=== PATIENT | female | born 1950 | race Caucasian/White ===

== ENCOUNTER 2017-11-28 05:19 | Inpatient (IN) | payer MEDICARE, SELFPAY ==
[2017-11-15 10:18] VITALS: BP 141/84; PULSE 64; RESP 17; TEMP 36.4; O2SAT 98; BMI 34.1
--- NOTE | 2017-11-15 10:39 | SDCEKG_ITS ---
Test Reason : Blood Pressure : / mmHG Vent. Rate : 063 BPM Atrial Rate : 063 BPM P-R Int : 170 ms QRS Dur : 080 ms QT Int : 430 ms P-R-T Axes : 061 036 060 degrees QTc Int : 440 ms Normal sinus rhythm Possible Left atrial enlargement Borderline ECG Confirmed by CASSANDRA SPIVEY ([id number]), editor house organ CAPRICE CAVANAUGH ([id number] on 11/17/2017 2:10:36 PM Referred By: Mario Massey Confirmed By:CASSANDRA SPIVEY
[2017-11-15 11:05] LABS: Hematocrit 45.1 % (37-47); Hemoglobin 14.5 g/dl (12.0-15.0); Mean Corp Hgb Conc 32.2 g/gl (32-36); Mean Corpuscular Volume 93.2 fL (81-99); Mean Platelet Vol. 10.3 fl (6.2-12.0); Platelet Count 238 K/mm3 (150-450); RBC Distribution Width CV 13.4 % (11.6-14.6); RBC Distribution Width SD 45.2 fl (35.1-43.9); Red Blood Count 4.84 M/mm3 (4.2-5.4); White Blood Count 7.5 K/mm3 (4.4-11.0)
[2017-11-15 11:06] LABS: Scan Indicated on CBC? Y/N NO
[2017-11-15 11:31] LABS: Anion Gap 11 (5-15); BUN 16 mg/dL (7-18); BUN/Creat Ratio 16.2 RATIO (10-20); Calcium,Total 8.9 mg/dL (8.5-10.1); Chloride 105 mmol/L (98-107); Creatinine, Serum 0.98 mg/dL (0.55-1.02); EST Glomerular Filtration Rate 60 mL/min (>60); Est Glom Filt Rate - Afr Amer 72 mL/min (>60); Estimated Creatinine Clearance 50.13 ml/min; Glucose 108 mg/dL (74-106); Potassium 4.4 mmol/L (3.5-5.1); Sodium Level 140 mmol/L (136-145); Thyroid Stim Hormone (TSH) 0.21 uIU/mL (0.358-3.74)
[2017-11-15 11:34] LABS: Hemoglobin A1c 5.9 % (4.2-6.3)
--- NOTE | 2017-11-24 15:55 | CASEMGMT ---
RITU GARCÍA called and spoke with patient regarding discharge needs after upcoming surgery. Patient states that she has a walker, cane, raised toilet seat, hip kit, and denies need for further DME. Patient states she lives in a 1 story home with a few steps to enter home. Patient lives with her . Patient states that she is setup with [facility] in [place] for outpatient therapy and that her spouse will be providing transportation. RITU GARCÍA will follow up with patient after surgery and will assist with discharge needs.
[2017-11-28] VITALS (11 sets, daily range): BP systolic 109–180; BP diastolic 62–84; PULSE 56–82; RESP 16–18; TEMP 35.7–37.1; O2SAT 96–100; BMI 34.1
[2017-11-28] MEDS: Celecoxib 200 MG Capsule 400 MG PO (05:52)
[2017-11-28] MEDS: oxyCODONE HCl Cr 10 MG Tablet PO (05:52)
[2017-11-28] MEDS: Acetaminophen 500 MG Tablet 1000 MG PO ×3 (05:53→21:43)
[2017-11-28] MEDS: Lactated Ringers 1,000 ML 999 ML IV (06:36)
[2017-11-28] MEDS: Cefazolin 2 GM in 0.9% Normal Saline 100 ML IV (07:20)
--- NOTE | 2017-11-28 08:35 | PCM.OPRPT ---
Report of Operation Date of Procedure: 11/28/17 Pre-Operative Diagnosis: Severe end-stage osteoarthritis right hip. Morbid obesity Post-Operative Diagnosis: Same Surgery/Procedure Performed:: Total hip arthroplasty right Description of Surgical Findings:: Eburnation of bone, periarticular osteophytes consistent with end-stage osteoarthritis aviation maintenance instructor: Chris Calderon Type of Anesthesia:: Spinal Anesthesiologist: Eddie Agee Special Medications: txa Specimen's removed: Bone and soft tissue Estimated Blood Loss (mL): 150 Fluids Replaced: See anesthesia report Description of Procedure: Implants: Akua Accolade 2 size 4 127? stem, 54 mm titanium cup with MDM +0 neck Surgical indications: Patient has severe end-stage osteoarthritic changes in the right hip. They have failed conservative measures including activity modification, anti-inflammatories, use of assistive devices. This to the point where the pain affects their ability to enjoy life and complete activities of daily living without discomfort. Patient has elected to undergo the above procedure Procedure description: The patient was greeted in the preoperative area the right hip was marked with surgical marker preoperative antibiotics administered. The patient was then taken to or suite in stable condition. Preoperative tranexamic acid was also utilized. Once the patient was placed in the supine position on the operating room table and once adequate anesthesia was obtained they were then placed in the lateral decubitus position with the surgical hip facing the field. All bony prominences were well-padded. A commercial hip position was utilized. The appropriate extremity was then prepped and draped in usual sterile fashion. Ioban was placed on the skin. Surgical timeout was performed and surgery was commenced. Standard anterolateral approach to the hip was then performed incision was planned and carried out with a #10 blade. Dissection was then carried length of the incision to the IT band which was split proximally and distally. A Charnley retractor was then placed for soft tissue retraction exposing the gluteus medius. The hip was then approached through a transgluteal approach and dislocated through an anterior capsulectomy. Severe eburnation of bone was noted periarticular osteophytes were identified consistent with severe end-stage osteoarthritis. A femoral osteotomy was then created approximately 1 fingerbreadth above the lesser trochanter. This was measured and placed on the back table. Once this was complete acetabular retractors were placed anteriorly and posteriorly and a 4 mm Steinmann pin was placed anterior superior aspect of the acetabulum for soft tissue retention. Labrum was then removed from the acetabulum exposing the entire cup of the acetabulum. Sequential reaming was then commenced and the acetabulum was medialized and sequentially widened in order to accommodate appropriate size cup. The acetabular cup was then impacted into position to the appropriate depth referencing approximately 30? inversion 45? of inclination. Excellent purchase was obtained. No screws were placed in the cup. MDM metal liner was then placed in the locking mechanism of the acetabulum, locking mechanism was engaged and confirmed to be locked. Attention was then turned to the femoral preparation. The hip was placed in the 90/90 position and a lateralizing box osteotome was utilized. Femoral starting awl was used followed by sequential broaching to the appropriate size. Excellent purchase was obtained with the stem no stem subsidence and excellent rotational stability was confirmed. A calcar reamer was then used in the trial head neck was placed on the broach. The hip was then located and taken through full range of motion flexion internal and external rotation as well as extension. Excellent stability was noted no impingement was identified of the components and leg lengths appear to be appropriate. The hip was at this point dislocated and the trial femoral components were removed. The final femoral stem was then implanted and impacted to the appropriate depth. Again excellent purchase was obtained no stem subsidence or rotational instability was noted. The hip was once again trialed and confirmation of leg length and stability was performed. Soft tissue tension also appeared to be appropriate. At this point the hip was redislocated and the trunnion was cleaned and dried meticulously in the appropriate size femoral head was placed on the clean dry trunnion using a 12/14 Bowden taper. The hip was once again relocated and again taken through full range of motion. I did inject a cocktail of postoperative pain medication in the deep and superficial tissues. A quick Betadine bath was performed followed by copious irrigation. Anatomic closure of the gluteus medius and minimus was performed with #1 Vicryl [id number] type fashion followed by closure of the IT band with #1 Vicryl 0 Vicryl was utilized in subcutaneous tissue and surgical amy were placed in the skin. A well-padded nonadherent dressing was applied. Patient was taken to PACU in stable condition. No complications were identified. Will follow standard postop protocol for total hip arthroplasty. Patient must use assistive device for ambulation for approximately 6 weeks of the gluteal musculature heals. Patient size 5 foot 5-1/2 inches and 208 pounds created a more difficult procedure as the dissection was carried through approximately 4 inches of subcutaneous fat prior to identification of the lateral aspect of the hip. Additional time as well as the expertise of my technical staff assistant was required in order to complete a stable well fixed hip replacement Physician technical staff assistant was integral in all portions of this procedure. They assisted with positioning the patient, draping the extremity, holding retractors, closing the wound, and applying the dressing. This was all done under my direct supervision. The physician technical staff assistant was essential for a successful, efficient surgery. - Admit VTE Documentation VTE Present on Admission: Yes VTE Mechan Device Prophylaxis: SCD's, Thigh High ESTELLE Hose VTE Pharm Prophylaxis ordered?: Yes
--- NOTE | 2017-11-28 08:39 | OP.PCM_ITS ---
Report of Operation Date of Procedure: 11/28/17 Pre-Operative Diagnosis: Severe end-stage osteoarthritis right hip. Morbid obesity Post-Operative Diagnosis: Same Surgery/Procedure Performed:: Total hip arthroplasty right Description of Surgical Findings:: Eburnation of bone, periarticular osteophytes consistent with end-stage osteoarthritis batch maker: Chris Calderon Type of Anesthesia:: Spinal Anesthesiologist: Eddie Agee Special Medications: txa Specimen's removed: Bone and soft tissue Estimated Blood Loss (mL): 150 Fluids Replaced: See anesthesia report Description of Procedure: Implants: Akua Accolade 2 size 4 127? stem, 54 mm titanium cup with MDM +0 neck Surgical indications: Patient has severe end-stage osteoarthritic changes in the right hip. They have failed conservative measures including activity modification, anti-inflammatories, use of assistive devices. This to the point where the pain affects their ability to enjoy life and complete activities of daily living without discomfort. Patient has elected to undergo the above procedure Procedure description: The patient was greeted in the preoperative area the right hip was marked with surgical marker preoperative antibiotics administered. The patient was then taken to or suite in stable condition. Preoperative tranexamic acid was also utilized. Once the patient was placed in the supine position on the operating room table and once adequate anesthesia was obtained they were then placed in the lateral decubitus position with the surgical hip facing the field. All bony prominences were well-padded. A commercial hip position was utilized. The appropriate extremity was then prepped and draped in usual sterile fashion. Ioban was placed on the skin. Surgical timeout was performed and surgery was commenced. Standard anterolateral approach to the hip was then performed incision was planned and carried out with a #10 blade. Dissection was then carried length of the incision to the IT band which was split proximally and distally. A Charnley retractor was then placed for soft tissue retraction exposing the gluteus medius. The hip was then approached through a transgluteal approach and dislocated through an anterior capsulectomy. Severe eburnation of bone was noted periarticular osteophytes were identified consistent with severe end- stage osteoarthritis. A femoral osteotomy was then created approximately 1 fingerbreadth above the lesser trochanter. This was measured and placed on the back table. Once this was complete acetabular retractors were placed anteriorly and posteriorly and a 4 mm Steinmann pin was placed anterior superior aspect of the acetabulum for soft tissue retention. Labrum was then removed from the acetabulum exposing the entire cup of the acetabulum. Sequential reaming was then commenced and the acetabulum was medialized and sequentially widened in order to accommodate appropriate size cup. The acetabular cup was then impacted into position to the appropriate depth referencing approximately 30? inversion 45? of inclination. Excellent purchase was obtained. No screws were placed in the cup. MDM metal liner was then placed in the locking mechanism of the acetabulum, locking mechanism was engaged and confirmed to be locked. Attention was then turned to the femoral preparation. The hip was placed in the 90/90 position and a lateralizing box osteotome was utilized. Femoral starting awl was used followed by sequential broaching to the appropriate size. Excellent purchase was obtained with the stem no stem subsidence and excellent rotational stability was confirmed. A calcar reamer was then used in the trial head neck was placed on the broach. The hip was then located and taken through full range of motion flexion internal and external rotation as well as extension. Excellent stability was noted no impingement was identified of the components and leg lengths appear to be appropriate. The hip was at this point dislocated and the trial femoral components were removed. The final femoral stem was then implanted and impacted to the appropriate depth. Again excellent purchase was obtained no stem subsidence or rotational instability was noted. The hip was once again trialed and confirmation of leg length and stability was performed. Soft tissue tension also appeared to be appropriate. At this point the hip was redislocated and the trunnion was cleaned and dried meticulously in the appropriate size femoral head was placed on the clean dry trunnion using a 12/14 Bowden taper. The hip was once again relocated and again taken through full range of motion. I did inject a cocktail of postoperative pain medication in the deep and superficial tissues. A quick Betadine bath was performed followed by copious irrigation. Anatomic closure of the gluteus medius and minimus was performed with #1 Vicryl [id number] type fashion followed by closure of the IT band with #1 Vicryl 0 Vicryl was utilized in subcutaneous tissue and surgical amy were placed in the skin. A well- padded nonadherent dressing was applied. Patient was taken to PACU in stable condition. No complications were identified. Will follow standard postop protocol for total hip arthroplasty. Patient must use assistive device for ambulation for approximately 6 weeks of the gluteal musculature heals. Patient size 5 foot 5-1/2 inches and 208 pounds created a more difficult procedure as the dissection was carried through approximately 4 inches of subcutaneous fat prior to identification of the lateral aspect of the hip. Additional time as well as the expertise of my housing assistant was required in order to complete a stable well fixed hip replacement Physician housing assistant was integral in all portions of this procedure. They assisted with positioning the patient, draping the extremity, holding retractors , closing the wound, and applying the dressing. This was all done under my direct supervision. The physician housing assistant was essential for a successful, efficient surgery. - Admit VTE Documentation VTE Present on Admission: Yes VTE Mechan Device Prophylaxis: SCD's, Thigh High ESTELLE Hose VTE Pharm Prophylaxis ordered?: Yes
--- NOTE | 2017-11-28 09:30 | RAD_ITS ---
STUDY: X-RAY - PELVIS AND RIGHT HIP REASON FOR EXAM: Female, 66 years old. Postop from hip replacement surgery TECHNIQUE: Radiological exam, hip, unilateral, with pelvis when performed; 2 or 3 views. 2 views obtained COMPARISON: None. FINDINGS: Patient is status post right hip replacement surgery. Components demonstrate anatomic alignment. No plain film evidence of postoperative complication. Normal postoperative soft tissue swelling and subcutaneous emphysema. Moderate to severe left hip arthrosis Calcification in the pelvis likely represents an involuted fibroid RAD/Hip Min 2 Views (Portable) IMPRESSION: Replaced right hip joint demonstrates anatomic alignment. No plain film evidence of postoperative complication Electronically Signed: Jett Smart MD at 10:21 EDT , Service support ,
[2017-11-28] MEDS: proMETHazine 25 MG/ML Syringe 12.5 MG IM (12:50)
[2017-11-28] MEDS: 0.9% NaCl Peripheral Flush Adult/Peds IV (12:51)
[2017-11-28] MEDS: Lactated Ringers 1,000 ML 125 ML IV ×2 (14:32→23:14)
[2017-11-28] MEDS: Cefazolin 1 GM/50 ML BAG IV ×2 (14:32→23:14)
[2017-11-28] MEDS: oxyCODONE 5 MG Tablet PO (15:23)
[2017-11-28] MEDS: Aspirin 325 MG Tablet PO (17:37)
[2017-11-28] MEDS: morphine SR 15 MG Tablet PO (21:42)
[2017-11-28] MEDS: Senna/Docusate Sodium 1 Tablet 2 TABLET PO (21:43)
[2017-11-29] MEDS: oxyCODONE 5 MG Tablet PO ×3 (00:30→11:39)
[2017-11-29 01:58] VITALS: BP 112/54; PULSE 85; RESP 15; TEMP 37.3; O2SAT 96
[2017-11-29] MEDS: Acetaminophen 500 MG Tablet 1000 MG PO ×3 (05:26→21:03)
[2017-11-29 06:15] LABS: Hematocrit 33.8 % (37-47); Hemoglobin 10.8 g/dl (12.0-15.0); Mean Corpuscular Hgb 30.6 pg (27.0-32.0); Mean Corpuscular Volume 95.8 fL (81-99); Mean Platelet Vol. 10.8 fl (6.2-12.0); Platelet Count 190 K/mm3 (150-450); RBC Distribution Width CV 13.3 % (11.6-14.6); RBC Distribution Width SD 44.1 fl (35.1-43.9); Red Blood Count 3.53 M/mm3 (4.2-5.4); White Blood Count 7.1 K/mm3 (4.4-11.0)
[2017-11-29 06:25] LABS: Scan Indicated on CBC? Y/N NO
[2017-11-29 06:32] LABS: Anion Gap 7 (5-15); BUN 13 mg/dL (7-18); BUN/Creat Ratio 13.9 RATIO (10-20); Calcium,Total 8.3 mg/dL (8.5-10.1); Chloride 107 mmol/L (98-107); Creatinine, Serum 0.94 mg/dL (0.55-1.02); EST Glomerular Filtration Rate 63 mL/min (>60); Est Glom Filt Rate - Afr Amer 77 mL/min (>60); Estimated Creatinine Clearance 52.26 ml/min; Glucose 106 mg/dL (74-106); Potassium 4.2 mmol/L (3.5-5.1); Sodium Level 141 mmol/L (136-145)
--- NOTE | 2017-11-29 07:28 | PN.ORTHO_ITS ---
Subjective: Patient sitting at bedside, eating breakfast. Patient's pain is very well- managed. Denies chest pain, shortness breath, calf pain, nausea vomiting. No other complaints Objective: Dressings clean dry intact. Vital signs labs within normal limits. Patient is afebrile neurovascular is intact. Negative signs and symptoms of DVT. - Physical Exam General: Alert, Oriented x3, Cooperative HEENT: PERRLA Oral: Moist Mucosa Neurological: Cranial nerves II-XII grossly intact Psych/Mental Status: Normal Affect, Alert and oriented to time, place, person, mood and affect Vital Signs Temp Pulse Resp BP Pulse Ox 99.1 F 85 15 112/54 L 96 11/29/17 01:58 11/29/17 01:58 11/29/17 01:58 11/29/17 01:58 11/29/17 01:58 Oxygen Delivery Method Room Air Weight: 94.4 kg Body Mass Index (BMI) 34.1 Intake and Output for Last 24 Hours 11/27/17 11/28/17 11/29/17 23:59 23:59 23:59 Intake Total 4006 / 4006 1273 / 1273 Balance 4006 / 4006 1273 / 1273 Laboratory Tests Past 24 Hrs 11/29/17 11/29/17 05:35 05:35 WBC 7.1 RBC 3.53 L Hgb 10.8 L Hct 33.8 L MCV 95.8 MCH 30.6 MCHC 32.0 RDW 13.3 RDW Differential 44.1 H Plt Count 190 MPV 10.8 Sodium 141 Potassium 4.2 Chloride 107 Carbon Dioxide 27.0 Anion Gap 7 BUN 13 Creatinine 0.94 Estim Creat Clear Calc 52.26 Est GFR (MDRD) Af Amer 77 Est GFR (MDRD) Non-Af 63 BUN/Creatinine Ratio 13.9 Glucose 106 Calcium 8.3 L Medical Necessity - Tobacco Use Smoking Status: Never smoker Assessment/Plan Status post right total hip Plan 1. Continue all pain medications as prescribed 2. Begin physical therapy today weightbearing as tolerated with walker 3. Aspirin 325 mg 1 p.o. every 12 hours ?30 days for postop DVT prophylaxis 4. Encourage incentive spirometry 5. Possible discharge home tomorrow
[2017-11-29 09:27] VITALS: BP 109/53; PULSE 81; RESP 16; TEMP 36.7; O2SAT 94
[2017-11-29] MEDS: Aspirin 325 MG Tablet PO ×2 (09:37→18:14)
[2017-11-29] MEDS: Senna/Docusate Sodium 1 Tablet 2 TABLET PO ×2 (09:37→21:03)
[2017-11-29] MEDS: morphine SR 15 MG Tablet PO ×2 (09:37→21:03)
[2017-11-29] MEDS: Famotidine 20 MG Tablet PO (09:37)
[2017-11-29 14:22] VITALS: BP 102/63; PULSE 77; RESP 16; TEMP 36.9; O2SAT 97
--- NOTE | 2017-11-29 14:33 | CASEMGMT ---
RITU GARCÍA Face to Face with patient for initial transition planning/care coordination assessment. RITU GARCÍA introduced self and role at [facility]. Patient lying in bed, alert and oriented. Patient willing to participate in assessment and is able to answer all questions appropriately. Care providers, pharmacy, and demographics verified. Patient wishes to discharge home with outpatient therapy at [facility] in [place] with providing transportation. Patient states she has no further needs or concerns at this time. CM to follow for discharge planning needs that may arise. Disposition Plan: Patient to discharge home with outpatient therapy, family support, and follow-up plans in place.
[2017-11-29] MEDS: Ketorolac 15 MG/ML Vial IV (18:16)
[2017-11-29] MEDS: 0.9% NaCl Peripheral Flush Adult/Peds IV (18:16)
[2017-11-29 20:48] VITALS: BP 119/71; PULSE 90; RESP 18; TEMP 36.6; O2SAT 99
[2017-11-30] MEDS: oxyCODONE 5 MG Tablet PO ×2 (02:34→07:47)
[2017-11-30 02:35] VITALS: BP 128/67; PULSE 99; RESP 18; TEMP 37.3; O2SAT 99
[2017-11-30] MEDS: Acetaminophen 500 MG Tablet 1000 MG PO (05:34)
[2017-11-30 05:58] LABS: Hematocrit 31.7 % (37-47); Hemoglobin 10.3 g/dl (12.0-15.0); Mean Corp Hgb Conc 32.5 g/gl (32-36); Mean Corpuscular Volume 95.5 fL (81-99); Platelet Count 161 K/mm3 (150-450); RBC Distribution Width CV 13.4 % (11.6-14.6); RBC Distribution Width SD 44.4 fl (35.1-43.9); Red Blood Count 3.32 M/mm3 (4.2-5.4); White Blood Count 8.4 K/mm3 (4.4-11.0)
[2017-11-30 06:09] LABS: Scan Indicated on CBC? Y/N NO
[2017-11-30] MEDS: Aspirin 325 MG Tablet PO (07:41)
[2017-11-30 07:42] VITALS: BP 122/67; PULSE 90; RESP 18; TEMP 36.7; O2SAT 96
[2017-11-30] MEDS: Famotidine 20 MG Tablet PO (10:34)
[2017-11-30] MEDS: Senna/Docusate Sodium 1 Tablet 2 TABLET PO (10:34)
[2017-11-30] MEDS: morphine SR 15 MG Tablet PO (10:39)
--- NOTE | 2017-11-30 11:51 | PCM.PN.ORT ---
Subjective: Patient sitting up in bed sleeping. Patient easy to awake. at her bedside. Patient denies chest pain, shortness breath, calf pain, nausea vomiting. Has no other complaints. Ready for discharge home. Objective: Dressings clean dry intact. Negative signs and symptoms of DVT. Vital signs labs within normal limits. Patient is afebrile neurovascular intact, no respiratory distress. - Physical Exam General: Alert, Oriented x3, Cooperative HEENT: PERRLA Oral: Moist Mucosa Neurological: Cranial nerves II-XII grossly intact Psych/Mental Status: Normal Affect, Alert and oriented to time, place, person, mood and affect Vital Signs Temp Pulse Resp BP Pulse Ox 98.0 F 90 18 122/67 H 96 11/30/17 07:42 11/30/17 07:42 11/30/17 07:42 11/30/17 07:42 11/30/17 07:42 Oxygen Delivery Method Room Air Weight: 94.4 kg Body Mass Index (BMI) 34.1 Intake and Output for Last 24 Hours 11/28/17 11/29/17 11/30/17 23:59 23:59 23:59 Intake Total 4006 / 4006 1573 / 1573 250 / 250 Balance 4006 / 4006 1573 / 1573 250 / 250 Laboratory Tests Past 24 Hrs 11/30/17 05:30 WBC 8.4 RBC 3.32 L Hgb 10.3 L Hct 31.7 L MCV 95.5 MCH 31.0 MCHC 32.5 RDW 13.4 RDW Differential 44.4 H Plt Count 161 MPV 11.0 Medical Necessity - Tobacco Use Smoking Status: Never smoker Assessment/Plan Status post right total hip Plan 1. Continue all pain medications as prescribed 2. Continue physical therapy outpatient, as scheduled. Weightbearing as tolerated with walker 3. Aspirin 325 mg 1 p.o. every 12 hours ?30 days for postop DVT prophylaxis 4. Follow-up as scheduled. See pink sheet 5. Discharge home
--- NOTE | 2017-11-30 11:57 | PCM.DC.THR ---
Discharge Diet: No Restrictions Discharge Activity: May Not Drive, May Shower, Use Walker May shower in (days): 3 - only if incision is dry and without drainage. Do NOT soak/submerge in tub/pool/crowley/stream/hot tub. May resume sexual activity in: No Restrictions Ice area for (Minutes): 20 - every hour while awake Weight Bearing Status: Weight bearing as tolerated Lifting Restrictions: 20 pounds Elevate: Operative Extremity Call your doctor if your incision/area has: Continuous Slow Oozing, Sudden Increased Bleeding, Increased Pain/ Swelling, Increased Redness, Foul Smelling Discharge Call your doctor if you observe: Fever of 101 or Higher, Inability to urinate, Inability to have a bowel movement, Shortness of breath, Fainting spells, Chest pain, Increased palpitations (irregular heartbeat), Calf discomfort, Uncontrolled pain Change Dressing in (Days):: 1 - Change daily and as needed. Cleanse incision/area with: Soap & Water Allergies/Adverse Reactions: Allergies No Known Allergies Allergy (Verified 11/15/17 10:07) Medications to take at Discharge Atorvastatin Calcium [Lipitor] 20 mg PO QHS 11/15/17 Cholecalciferol (Vitamin D3) [Vitamin D3] 2,000 unit PO DAILY 11/15/17 Levothyroxine Sodium [Synthroid] 88 mcg PO QHS 11/15/17 Losartan Potassium [Cozaar] 50 mg PO DAILY 11/15/17 Meloxicam [Mobic] 15 mg PO PRN PRN 11/15/17 Metoprolol Succinate [Toprol Xl] 50 mg PO DAILY 11/15/17 Niacin [Niacin ER] 1,000 mg PO QHS 11/15/17 Omeprazole [Prilosec] 20 mg PO PRN PRN 11/15/17 Acetaminophen [Tylenol] 1,000 mg PO Q8 #90 tab 11/30/17 Aspirin 325 mg PO BIDCM #60 tab 11/30/17 Oxycodone [Oxyir] 5 - 10 mg PO Q6H PRN PRN 7 Days #45 tab 11/30/17 The following prescriptions were given: Oxycodone [Oxyir] 5 - 10 mg PO Q6H PRN PRN 7 Days #45 tab PRN Reason: Mod-Severe Pain (4-05/10) Acetaminophen [Tylenol] 1,000 mg PO Q8 #90 tab Aspirin 325 mg PO BIDCM #60 tab Primary Care Physician: Vijay Jc MD [Primary Care Provider] - Please Follow Up With: Mario Massey, DO When: see pink sheet
[2017-11-30 13:29] VITALS: BP 110/59; PULSE 98; RESP 16; TEMP 36.6; O2SAT 95
== END 2017-11-30 14:00 | disposition home or self-care (01) | DRG 470 ==
LOC: MS3 05:20
PROVIDERS: Anesthesiology; Admitting Provider Orthopaedic Surgery; Visit Provider Orthopaedic Surgery
PROC: 0SR90JZ Replacement of Right Hip Joint with Synthetic Substitute, Open Approach (ICD-10-PCS; CPT 27130; principal; 2017-11-28 06:50)
DX: M16.11 Unilateral primary osteoarthritis, right hip (principal); E66.01 Morbid (severe) obesity due to excess calories; I10 Essential (primary) hypertension; E78.00 Pure hypercholesterolemia, unspecified; M51.36 Other intervertebral disc degeneration, lumbar region; K21.9 Gastro-esophageal reflux disease without esophagitis; E06.9 Thyroiditis, unspecified; Z68.34 Body mass index [BMI] 34.0-34.9, adult; Z79.82 Long term (current) use of aspirin; Z79.899 Other long term (current) drug therapy
CPT/HCPCS: 36415; 73502; 80048; 83036; 84443; 85027; 87081; 93005; 97110; 97116; 97162; 97165; 97530; 97535; J7120; A4216

== ENCOUNTER 2020-10-08 12:17 | Observation (INO) | payer MEDICARE, SELFPAY ==
--- NOTE | 2020-09-24 15:34 | PCM.HP.BLA ---
History and Physical History and Physical [facility] Patient Name: Mine Perdomo : 1950 From: KARMA MABRY PA-C DATE OF SURGERY: 10/08/2020 SCHEDULED PROCEDURE: left total hip arthroplasty HISTORY OF PRESENT ILLNESS: Preoperative history and physical exam was performed on September 24, 2020. This is a 69-year-old female who has had ongoing pain in her left hip for several years. Patient's pain can reach 10/10 with activities. On average her pain as 4/10. Her pain has been intermittent, aching, sharp, sore. Pain is increased with going up and down stairs and walking short distances. Patient has difficulty with activities of daily living including bathing/showering, getting dressed, housework, and leisure activities such as walking. She has no longer able to use her treadmill. She has tripped/stumbled due to her hip pain. She feels unsafe for any activities that require standing for long period of time. Patient has attempted [id number] Tylenol and meloxicam with some relief. She does have previous history of a right total hip arthroplasty [place] [address] Mario Massey. Patient denies previous surgery on the left hip. She has been using cane for the past 2 months occasionally. She denies any current chest pain, shortness of breath, fevers chills, recent infections. We are obtaining surgical clearance from her primary care physician Dr. Jc. Patient also reports undergoing an EKG, stress test, and echocardiogram in July 2020. After failing conservative measures and discussing treatment options with Dr. Hubert Brooks, the patient does wish to proceed with a left total hip arthroplasty. REVIEW OF SYSTEMS: ROS: Const: Reports weight change, but denies change in appetite and fever. CV: Denies chest pain, heart murmur and irregular heartbeat. Resp: Denies cough, pneumonia, SOB, tuberculosis and wheezing. GI: Reports heartburn, but denies constipation, diarrhea, difficulty swallowing, nausea, bloody stools and vomiting. : Urinary: reports incontinence. Musculo: Reports limp, trouble walking and weakness, but denies leg swelling. Skin: Denies Raynaud's, history of shingles and tattoo. Neuro: Denies ambulatory dysfunction, dizziness, numbness/tingling and tremor. Psych: Denies anxiety, insomnia and stress. Victor M/Lymph: Reports bleeding/bruising tendency, but denies anemia and past transfusion. Reviewed, no changes. PAST MEDICAL HISTORY: Advance Care Plan: Other Directive, POA Effective Date: 11/03/2017 Other Directive, LIVING WILL Effective Date: 11/03/2017 PMH: Medical Problems: Arthritis, High Blood Pressure, Hypercholesterolemia Accidents: None Surgical Hx: Partial Thyroidectomy - (2008) Hip Replacement RT - (11/28/2017) [email or web address] LT Small Finger Trigger Release - (2017) Anesthesia Complications: None Assistive Devices: None Reviewed and updated. SOCIAL HISTORY: SH: Marital: .Occupation: Retired.Work Status: Retired.Hand Dominance: Right-handed. Personal Habits: Cigarette Use: Never Smoked Cigarettes.Alcohol: Occasionally.Drug Use: Denies Use.Enjoy Exercising: Daily. Reviewed, no changes. VITALS: Ht: 65 Wt: 197lb Wt k.359 BMI: 32.8 BP: 113/60 Pulse: 56 Resp: 16 T: 97.0 T: 36.1C Pain Level: 5 ALLERGIES: No Known Drug Allergy MEDICATIONS: Losartan Potassium 50 mg 1po qday, Atorvastatin Calcium 20 mg 1po qday, Aspirin 325 mg 1 tab PO daily, Vitamin D 2000 Unit 1po qday, Metoprolol Succinate ER 100 mg 1 by mouth every day, Sertraline HCL 50 mg 1 by mouth every day, Synthroid 88 mcg 1 by mouth every day, Niaspan 1000 mg 1 PO q day PRE-OP EXAM: General appearance:NORMAL Other: Eyes: Conjunctivae and lids: NORMAL Pupils: ERR Ears, Nose, Mouth, and Throat: NORMAL Other: Inspection of lips, teeth and gums: NORMAL Other: Neck: Examination of neck: no masses noted. Respiratory: Assessment of respiratory effort: NORMAL Other: Auscultation of lungs: clear to auscultation no wheezes, rhonchi or rales. Cardiovascular: Auscultation of heart: regular rate and rhythm, no murmurs, gallops or rubs. Exam of carotid arteries: NORMAL Other: Gastrointestinal: Exam of abdomen: soft, nontender, nondistended bowel sounds present. PHYSICAL EXAMINATION: Patient does walk with an antalgic gait. Left hip is without any erythema or signs of infection. Patient has obligatory external rotation with hip flexion. Flexion 50, internal rotation neutral, external rotation 10. Resisted range of motion: 4/5 hip flexion. Patient also has a 10 flexion contracture of the left knee with valgus alignment. IMAGING STUDIES: Previous x-rays of the left hip reveal joint space narrowing, subchondral sclerosis, osteophyte formation consistent with severe stage IV central wear pattern left hip osteoarthritis. IMPRESSION: 1. Severe left hip osteoarthritis 2. Hypertension 3. Hypercholesterolemia 4. Partial thyroidectomy PLAN: Dr. Hubert Brooks did discuss and review with the patient all treatment options including surgical versus nonsurgical options. Patient does wish to proceed with the above-stated procedure. Potential risks, benefits, and complications of the procedure were discussed in detail including but not limited to , infection, nerve and blood vessel damage, persistent pain, numbness, tingling, paresthesias, blood clot, pulmonary embolism, and requirement for possible further surgery. The patient expressed full understanding and has no further questions for the doctor. Patient does agree to proceed with the above-stated procedure and has signed the surgery consent form. We discussed the current risks associated with COVID 19. This does include the risk of exposure while in the hospital. Patient was reassured local hospitals have low infection rates and are taking all necessary precautions to avoid exposure to patients. In addition, we discussed strategies that can be used to help limit exposure including those that limit the patient's time in the hospital. Also using strategies to limit the patient's need for continued inpatient services after being discharged from the hospital. Patient was notified that we will need to comply with any screening or testing the hospital wishes to perform or that surgery may be delayed for any positive results. This dictation was created using voice recognition software. Phonetic and/or grammatical errors may exist. ___ I have re-examined the patient. There are no clinical changes since date of exam. ___ See progress notes for changes. ___ Dictated on admission Date: Time: Signature:
[2020-10-08] VITALS (11 sets, daily range): BP systolic 105–144; BP diastolic 59–84; PULSE 58–88; RESP 16–18; TEMP 36.2–36.8; O2SAT 94–100; BMI 32.3
[2020-10-08] MEDS: Celecoxib 200 MG Capsule 400 MG PO (10:38)
[2020-10-08] MEDS: Gabapentin 600 MG Tablet PO (10:38)
[2020-10-08] MEDS: Acetaminophen 500 MG Tablet 1000 MG PO ×2 (10:39→21:57)
[2020-10-08] MEDS: Lactated Ringers 1,000 ML 999 ML IV ×2 (11:00→13:30)
[2020-10-08 11:30] LABS: Bedside Glucose 90 mg/dL (70-110)
[2020-10-08] MEDS: Lactated Ringers 1,000 ML 75 ML IV (11:34)
[2020-10-08 11:37] LABS: Magnesium 2.1 mg/dL (1.6-2.6); Thyroid Stim Hormone (TSH) 1.38 uIU/mL (0.358-3.74)
--- NOTE | 2020-10-08 12:15 | RAD_ITS ---
STUDY: X-RAY - PELVIS AND LEFT HIP REASON FOR EXAM: Female, 69 years old. Pain. TECHNIQUE: 4 intraoperative digital documentation images of hip replacement. COMPARISON: 11/28/2017 FINDINGS: Intraoperative digital documentation images show placement of left total hip arthroplasty with no complications. RAD/Hip 1 view with Pelvis IMPRESSION: Intraoperative digital documentation images. Electronically Signed: Chris Gallegos MD at 15:59 EST , Service support ,
[2020-10-08] MEDS: Cefazolin 2 GM in 0.9% Normal Saline 100 ML IV (12:31)
[2020-10-08] MEDS: dexAMETHasone 10 MG/ML Vial IV (12:34)
--- NOTE | 2020-10-08 13:32 | OP.PCM_ITS ---
Report of Operation Date of Procedure: 10/08/20 Pre-Operative Diagnosis: Left hip primary osteoarthritis Surgery/Procedure Performed:: Left hip primary osteoarthritis Description of Surgical Findings:: Left minimally invasive direct anterior total hip replacement gutter hanger: Romero Baxter Type of Anesthesia:: Spinal Anesthesiologist: Elieser Cid Special Medications: 2 g Ancef, 1 g TXA at incision, 1 g TXA closure, 10 mg Decadron, joint cocktail (5 mg Duramorph, 30 mL of 0.5% Ropivicaine, 1000 units of epinephrine, 30 mg of Toradol) Specimen's removed: Bony cuts Estimated Blood Loss (mL): 200 Fluids Replaced: 1400 mL crystalloid Description of Procedure: Components used: 1. Accolade 2 Akua femoral stem size 5 127? 2. [place] trident 2 acetabular shell size 54 mm 3. [place] X3 polyethylene E 4. [place] Biolox delta 36mm, -5mm femoral head Brief history operative indications: 69 yo F who failed conservative measures for their hip osteoarthritis. X-rays were consistent with osteoarthritis including joint space narrowing, osteophyte formation and subchondral cysts. Total hip replacement was discussed with the patient with risks and benefits including but not limited to blood loss, DVTs, PEs, neurovascular damage, dislocation, general risks of anesthesia including loss of life. Patient demonstrated an understanding medical clearance is obtained the patient was consented for surgery. Procedure: On the date of procedure the patient's L hip was marked in the preoperative area. Patient was then taken back to the operating room where anesthesia assumed control of the C-spine and airway and administered anesthetic. Patient was transferred to the operating table and placed in the supine position. The hips were placed at the break of the bed and a sacral bump was placed. The L lower extremity was then prepped out in a sterile fashion using chlorhexidine while the surgeon scrubbed. The PA was vital in the positioning of the patient. Upon reentering the room the L lower extremity was draped in the standard orthopedic fashion and the incision was marked. A timeout was called and everyone agreed upon the side, the site, the procedure be performed, antibody given, and patient's identity. At this time incision was made through skin, subcutaneous tissue, and fat down to fascia. The fascia was then incised and the TFL was retracted laterally. A retractor was placed on the lateral border of the femoral neck. Attention was directed to the inferior portion of the approach and all crossing vessels were identified and appropriately coagulated. A retractor was then placed on the medial portion of the femoral neck. The anterior capsule was then cleared of all soft tissue and then H shaped capsulotomy was made. The retractors were then placed inside the capsule. The femoral neck was identified and a cleanup cut was made. At this time a power corkscrew was used to remove the femoral head. Attention was then turned toward the acetabulum where the soft tissues were appropriately retracted and the acetabulum was sequentially reamed to 54 mm. A 54 mm cup was then selected and impacted into place. Acetabular liner was impacted into place and locking mechanism was verified. The position of the acetabular cup was then verified under live fluoroscopy. Attention was then turned to the femur. Soft tissue releases on the medial and lateral femoral neck were appropriately done, the leg was externally rotated and lateralized. A Goodwin retractor was placed medially and proximally to the greater trochanter this allowed appropriate visualization and exposure of the femoral canal. Rongeour was then used to remove excess lateral bone. A canal finder and entry broach were used to open the proximal canal. Once we verified we were down the femoral canal we subsequently broached up to a size 5 femur. The appropriate neck was placed in the previously selected head was trialed with a -5 mm neck. Traction was pulled and the hip was reduced with internal rotation. Once it was appropriately reduced and stability was checked. There was minimal shuck, equal leg lengths and appropriate stability with hyperextension and external rotation as well as with 90? flexion and internal rotation. Fluoroscopy was then also used to verify the position of the components and leg lengths using the preoperative weightbearing x-rays for comparison due to previous side having a total hip replacement with hip sc chanics that did not match preoperative status including a radiographic leg length discrepancy. The trial components were then dislocated the proximal femur was again exposed and the components were removed from the wound. The final components were verified and opened. The wound was copiously irrigated out with normal saline. The acetabulum was checked for any residual debris. The final components were placed and impacted. Traction and internal rotation were again used to reduce the hip. After adequate reduction the hip remained stable with appropriate leg lengths. The final components were once again checked with live fluoroscopy and were found to be satisfactory. The wound was then copiously irrigated with normal saline once more, and hemostasis was obtained. Closure was then done using #1 Vicryl runner to close the fascia. A 2-0 vicryl interuppted sutures were used to close the subcutaneous skin. A 3-0 Monocryl and Steri-Strips were used for final skin closure. A Silverlon dressing was placed. Patient was awakened by anesthesia and [facility] Patient was then transferred to the PACU for recovery. Postoperative plan: Patient will get 24 hours postop antibiotics. Patient will get in-house physical therapy and will be weight-bear as tolerated. Patient will follow up in office in 2 weeks for a wound check and x-rays. Aspirin 325 mg twice daily (patient normally on 325 mg p.o. daily). During the course of the procedure the physician anesthesiology tech (PE) played a vital role. Their intimate knowledge of my steps in the procedure aided in safe and e xpedient completion of the procedure. The PE played a vital rolls in positioning particularly in obtaining the appropriate positioning of the sacral bump. The PE was also vital in the retraction of soft tissues during the exposure and especially the femoral work as this is a vital part of the procedure to prevent complications and fractures. The PE was also vital and protecting soft tissues during times of bony cuts and reaming. He also played a vital role in closure with my direct supervision. The PE was also important during reduction and dislocation of the joint and trials intraoperatively. - Complications No intraoperative complications - Admit VTE Documentation VTE Present on Admission: No VTE Mechan Device Prophylaxis: SCD's, Thigh High ESTELLE Hose VTE Pharm Prophylaxis ordered?: Yes
--- NOTE | 2020-10-08 14:40 | RAD_ITS ---
STUDY: X-RAY - PELVIS AND LEFT HIP REASON FOR EXAM: Female, 69 years old. Post Op -- AP both hips on single shadia/lateral of op hip PACU TECHNIQUE: 2 views of the pelvis and hip. COMPARISON: NOVEMBER 28, 2017 FINDINGS: Status post surgical resection of the left femoral head and neck. The proximal one third femoral prosthetic component is well placed within the intramedullary cavity as well as the acetabular cup. Both prosthetic components demonstrate good bony contact and alignment. Expected postoperative changes of the overlying soft tissues including gas and swelling. Calcified uterine fibroid partially visualized. The right hip prosthesis was present prior to the prior surgery. RAD/Hip Min 2 Views (Portable) IMPRESSION: Status post left hip arthroplasty Electronically Signed: Jose Lewis MD at 16:20 EST , Service support ,
[2020-10-08] MEDS: Lactated Ringers 1,000 ML 125 ML IV (15:16)
[2020-10-08] MEDS: Ensure Surgery 237 ML LIQUID PO (17:39)
--- NOTE | 2020-10-08 18:44 | PCM.PN.HOSP ---
Subjective: Patient notes pain is well controlled postoperatively. She does note that she had a spinal but has full sensation has been up and moving in her room. She has been using the polar ice continuously. She notes intention for discharge to home with outpatient therapies. Patient denies fevers, chills, nausea, emesis, abdominal pain, chest pain or dyspnea. Objective: Physical Examination: General: awake, alert, oriented x 3 and cooperative, seated upright in medical surgical bedside chair, no acute distress. Skin: normal color, turgor, no icterus, cyanosis except left hip dressing in place status post OR. HEENT: AT/NC, EOMI, PERRLA, MMM. Lungs: CTA bilaterally, moderate effort, mild decrease BL bases, no rales, ronchi or wheezing. Heart: Regular rate and rhythm; no gallop, rub audible. Abdomen: soft, obese, NTTP, ND, normal BS. Extremities: no cyanosis or clubbing, mild bilateral ankle not markedly pitting edema, status post recent left hip replacement, dressing in place. Neurological: patient awake, alert, oriented x 3; cognitive function intact; pupils equally reactive to light and accomodation; cranial nerves II-XII grossly normal, moving all 4 extremities although some limitation left lower extremity given recent left hip total replacement, strength accordingly moderately globally decreased. Psychiatric: affect appears normal, no acute evidence of depressive or anxiety feelings. Vitals/I&O's: Vital Signs Temp Pulse Resp BP Pulse Ox 97.9 F 85 18 105/62 94 10/08/20 17:47 10/08/20 17:47 10/08/20 17:47 10/08/20 17:47 10/08/20 17:47 Oxygen Flow Rate (L/min) 6 Oxygen Delivery Method Room Air Weight: 194 lb 10.691 oz Body Mass Index (BMI) 32.3 Intake and Output for Last 24 Hours 10/06/20 10/07/20 10/08/20 23:59 23:59 23:59 Intake Total 3835.5 / 3835.5 Balance 3835.5 / 3835.5 Microbiology Past 72 Hours 10/07/20 08:30 Interface Orders SARS-CoV-2 Antigen (Rapid) - Final Laboratory Results 10/08/20 11:02: Magnesium 2.1, TSH 1.38 10/08/20 11:19: POC Glucose 90 Current Medications Acetaminophen (Acetaminophen 500 Mg Tablet) 1,000 mg PO Q8 [facility] Aspirin (Aspirin 325 Mg Tablet) 325 mg PO BIDCM [facility] Atorvastatin Calcium (Atorvastatin Calcium 20 Mg Tablet) 20 mg PO QHS [facility] Cholecalciferol (Cholecalciferol (Vit D3) 1,000 Unit (25mcg)) 2,000 unit PO DAILY [facility] Enteral Nutritional Formula (Ensure Surgery 237 Ml Liquid) 237 ml PO TIDCM [facility] Last Admin: 10/08/20 17:39 Dose: 237 ml Documented by: Famotidine (Famotidine 20 Mg Tablet) 20 mg PO DAILY [facility] Lactated Ringer's () 1,000 mls @ 125 mls/hr IV .Q8H [facility] Stop: 10/08/20 22:29 Last Admin: 10/08/20 15:16 Dose: 125 mls/hr Documented by: Lactated Ringer's () 1,000 mls @ 125 mls/hr IV .Q8H [facility] Last Admin: 10/08/20 17:31 Dose: Not Given Documented by: Cefazolin Sodium () 1 gm in 50 mls @ 150 mls/hr IV Q8H [facility] Stop: 10/09/20 04:49 Sodium Chloride () 250 mls @ 15 mls/hr IV .[id number] PRN PRN Reason: Saline Flush Sodium Chloride () 250 mls @ 15 mls/hr IV .[id number] PRN PRN Reason: Additional IVPB Infusion Ketorolac Tromethamine (Ketorolac 15 Mg/Ml Vial) 15 mg IV Q6H PRN PRN PRN Reason: Pain Score 1-5 Stop: 10/10/20 09:00 Levothyroxine Sodium (Levothyroxine 88 Mcg Tablet) 88 mcg PO QHS [facility] Losartan Potassium (Losartan Potassium 100 Mg Tablet) 100 mg PO DAILY [facility] Meloxicam (Meloxicam 7.5 Mg Tablet) 7.5 mg PO BID [facility] Metoprolol Succinate (Metoprolol(Xl)Succ 100 Mg Tablet) 100 mg PO DAILY [facility] Morphine Sulfate (Morphine 2 Mg/Ml Syringe) 2 - 4 mg IV Q2H PRN PRN PRN Reason: Pain Score 4-10 Morphine Sulfate (Morphine 4 Mg/Ml Syringe) 2 - 4 mg IV Q2H PRN PRN PRN Reason: Pain Score 4-10 Ondansetron HCl (Ondansetron 4 Mg/2 Ml Vial) 4 mg IV Q8H PRN PRN PRN Reason: NAUSEA Oxycodone HCl (Oxycodone 5 Mg Tablet) 5 - 10 mg PO Q4H PRN PRN PRN Reason: Pain Score 4-10 Pantoprazole Sodium (Pantoprazole Sodium 20 Mg Tablet) 20 mg PO DAILY PRN PRN Reason: HEARTBURN Promethazine HCl (Promethazine 25 Mg/Ml Syringe) 12.5 mg IM Q6H PRN PRN; Protocol PRN Reason: NAUSEA/VOMITING Senna/Docusate Sodium (Senna/Docusate Sodium 1 Tablet) 2 tablet PO BID DAWNA Sertraline HCl (Sertraline 50 Mg Tablet) 50 mg PO DAILY DAWNA Sodium Chloride (0.9% Saline Lock 10 Ml Syringe) 10 - 40 ml IV UD PRN PRN Reason: SALINE FLUSH STROKE Vital Signs/Narrative: Vital Signs Temp Pulse Resp BP Pulse Ox 10/08/20 17:47 97.9 F 85 18 105/62 94 10/08/20 16:01 97.6 F L 72 18 126/67 H 100 10/08/20 15:50 98 10/08/20 15:24 97.3 F L 82 16 130/61 H 99 10/08/20 15:15 81 16 136/59 H 98 10/08/20 15:00 77 16 138/60 H 100 10/08/20 14:45 80 16 144/65 H 100 Medical Necessity - Tobacco Use Smoking Status: Never smoker Assessment/Plan The patient is a 69 y/o F w/ PMHx: HTN, HLD, Hypothyroidism, Obesity, GERD, Anxiety and Depression who presents to the [facility] on 10/08/20 as direct admission for planned operative intervention for left total hip arthroplasty secondary to ongoing severe left hip pain, worse with activity despite outpatient interventions. 1. Severe Osteoarthritis, L Hip: Failed conservative therapies and treatments, admitted per Dr. Brooks for planned L THR, post-operative pain management, bowel regimen, DVT Prophylaxis, PT/OT/CM per Orthopedic surgery discretion. 2. Hypertension: Continue home regimen including losartan, metoprolol with hold parameters, PRN hydralazine. 3. Hyperlipidemia: Continue home statin regimen. 4. Hypothyroidism: Continue home synthroid regimen. 5. Anxiety and depression: We will continue patient home sertraline regimen. 6. Obesity: Weight loss and lifestyle changes encouraged. 7. GERD: Currently patient maintained on famotidine with as needed Protonix per surgery. 8. DVT prophylaxis: SCDs, defer chemoprophylaxis to orthopedic surgery discretion given recent OR. Inpatient E&M: [id number] [facility] L3
[2020-10-08] MEDS: Cefazolin 1 GM/50 ML BAG IV (19:47)
[2020-10-08] MEDS: Senna/Docusate Sodium 1 Tablet 2 TABLET PO (21:57)
[2020-10-08] MEDS: Atorvastatin Calcium 20 MG Tablet PO (21:57)
[2020-10-08] MEDS: Aspirin 325 MG Tablet PO (21:57)
[2020-10-08] MEDS: Levothyroxine 88 MCG Tablet PO (21:58)
[2020-10-08] MEDS: oxyCODONE 5 MG Tablet PO (23:35)
[2020-10-08] MEDS: Ketorolac 15 MG/ML Vial IV (23:35)
[2020-10-08] MEDS: 0.9% Saline Lock 10 ML Syringe IV (23:35)
[2020-10-09] MEDS: Cefazolin 1 GM/50 ML BAG IV (03:46)
[2020-10-09 03:55] VITALS: BP 108/51; PULSE 57; RESP 16; TEMP 36.9; O2SAT 94
[2020-10-09] MEDS: Acetaminophen 500 MG Tablet 1000 MG PO ×2 (05:14→14:23)
[2020-10-09 06:48] LABS: Hematocrit 31.7 % (37-47); Hemoglobin 10.3 g/dL (12.0-15.0); Mean Corp Hgb Conc 32.5 g/dL (32-36); Mean Corpuscular Hgb 31.7 pg (27.0-32.0); Mean Corpuscular Volume 97.5 fL (81-99); Mean Platelet Vol. 10.3 fl (6.2-12.0); Platelet Count 194 K/mm3 (150-450); RBC Distribution Width CV 12.6 % (11.6-14.6); RBC Distribution Width SD 45.4 fl (35.1-43.9); Red Blood Count 3.25 M/mm3 (4.2-5.4); White Blood Count 12.2 K/mm3 (4.4-11.0)
[2020-10-09 07:22] VITALS: O2SAT 94
[2020-10-09 07:24] LABS: Anion Gap 8 (5-15); BUN 16 mg/dL (7-18); BUN/Creat Ratio 16.5 RATIO (10-20); Calcium,Total 8.2 mg/dL (8.5-10.1); Chloride 104 mmol/L (98-107); Creatinine, Serum 0.97 mg/dL (0.55-1.02); EST Glomerular Filtration Rate 60 mL/min (>60); Est Glom Filt Rate - Afr Amer 73 mL/min (>60); Estimated Creatinine Clearance 48.56 ml/min; Glucose 134 mg/dL (74-106); Potassium 4.4 mmol/L (3.5-5.1); Sodium Level 137 mmol/L (136-145)
[2020-10-09] MEDS: Ensure Surgery 237 ML LIQUID PO ×3 (08:00→17:22)
[2020-10-09] MEDS: oxyCODONE 5 MG Tablet PO ×3 (08:36→17:21)
[2020-10-09] MEDS: Losartan Potassium 100 MG Tablet PO (08:39)
[2020-10-09] MEDS: Aspirin 325 MG Tablet PO ×2 (08:39→17:21)
[2020-10-09] MEDS: Senna/Docusate Sodium 1 Tablet 2 TABLET PO (08:39)
[2020-10-09] MEDS: Famotidine 20 MG Tablet PO (08:39)
[2020-10-09 08:40] VITALS: BP 108/51; PULSE 57
[2020-10-09] MEDS: Metoprolol(XL)Succ 100 MG Tablet PO (08:40)
[2020-10-09] MEDS: Sertraline 50 MG Tablet PO (08:40)
--- NOTE | 2020-10-09 08:48 | PN_ITS ---
Subjective: Patient was seen and examined today, she has no specific complaints, she is up in a chair eating breakfast. Patient underwent a left minimally invasive direct anterior total hip replacement yesterday. She states that she anticipates she may be discharged home today, she states she does not need any prescriptions for her chronic medical problems. - Physical Exam Vitals/I&O's: Vital Signs Temp Pulse Resp BP Pulse Ox 98.4 F 57 L 16 108/51 L 94 10/09/20 03:55 10/09/20 08:40 10/09/20 03:55 10/09/20 08:40 10/09/20 07:22 Oxygen Flow Rate (L/min) 6 Oxygen Delivery Method Room Air Weight: 88.3 kg Body Mass Index (BMI) 32.3 Intake and Output for Last 24 Hours 10/07/20 10/08/20 10/09/20 23:59 23:59 23:59 Intake Total 5510.50 / 5510.50 125 / 125 Output Total 400 / 400 400 / 400 Balance 5110.50 / 5110.50 -275 / -275 General: Alert, Oriented x3, Cooperative, No apparent distress, Well developed, Well nourished HEENT: Atraumatic, PERRLA, EOMI, Normocephalic Oral: Moist Mucosa Neck: Supple, No JVD, Trachea Midline, Thyroid Normal Size and Texture Lungs: Clear to auscultation, Normal air movement, No rhonchi, No wheeze, No rales Cardiovascular: Regular rate, Regular Rhythm, Normal S1, Normal S2, No murmurs, PMI Normal, No rub noted, No Gallop Abdomen: Bowel Sounds Present, Soft, Non Tender, Non-Distended Extremities: Capillary Refill Less than 3 Seconds Skin: No rashes, No breakdown Neurological: Cranial nerves II-XII grossly intact, Neuro grossly intact, Sensory exam intact to light touch and pain Psych/Mental Status: Normal Affect, Appropriate, Alert and oriented to time, place, person, mood and affect Microbiology Past 72 Hours 10/07/20 08:30 Interface Orders SARS-CoV-2 Antigen (Rapid) - Final Laboratory Results 10/08/20 11:02: Magnesium 2.1, TSH 1.38 10/08/20 11:19: POC Glucose 90 10/09/20 05:50: WBC 12.2 H, RBC 3.25 L, Hgb 10.3 L, Hct 31.7 L, MCV 97.5, MCH 31.7, MCHC 32.5, RDW Std Deviation 45.4 H, RDW Coeff of Jesus 12.6, Plt Count 194, MPV 10.3 10/09/20 05:50: Sodium 137, Potassium 4.4, Chloride 104, Carbon Dioxide 25.0, Anion Gap 8, BUN 16, Creatinine 0.97, Estim Creat Clear Calc 48.56, Est GFR (MDRD) Af Amer 73, Est GFR (MDRD) Non-Af 60, BUN/Creatinine Ratio 16.5, Glucose 134 H, Calcium 8.2 L Current Medications Acetaminophen (Acetaminophen 500 Mg Tablet) 1,000 mg PO Q8 [facility] Last Admin: 10/09/20 05:14 Dose: 1,000 mg Documented by: Albuterol Sulfate (Albuterol 2.5 Mg/3 Ml Vial.Neb.) 2.5 mg INHALATION Q2H PRN PRN PRN Reason: Dyspnea, wheezing Aspirin (Aspirin 325 Mg Tablet) 325 mg PO BIDCM [facility] Last Admin: 10/09/20 08:39 Dose: 325 mg Documented by: Atorvastatin Calcium (Atorvastatin Calcium 20 Mg Tablet) 20 mg PO QHS [facility] Last Admin: 10/08/20 21:57 Dose: 20 mg Documented by: Cholecalciferol (Cholecalciferol (Vit D3) 1,000 Unit (25mcg)) 2,000 unit PO DAILY [facility] Last Admin: 10/09/20 08:40 Dose: 2,000 unit Documented by: Enteral Nutritional Formula (Ensure Surgery 237 Ml Liquid) 237 ml PO TIDCM [facility] Last Admin: 10/08/20 17:39 Dose: 237 ml Documented by: Famotidine (Famotidine 20 Mg Tablet) 20 mg PO DAILY [facility] Last Admin: 10/09/20 08:39 Dose: 20 mg Documented by: Hydralazine HCl (Hydralazine 20 Mg/Ml Vial) 10 mg IV Q4H PRN PRN PRN Reason: SBP > 160 Sodium Chloride () 250 mls @ 15 mls/hr IV .[id number] PRN PRN Reason: Saline Flush Sodium Chloride () 250 mls @ 15 mls/hr IV .[id number] PRN PRN Reason: Additional IVPB Infusion Ketorolac Tromethamine (Ketorolac 15 Mg/Ml Vial) 15 mg IV Q6H PRN PRN PRN Reason: Pain Score 1-5 Stop: 10/10/20 09:00 Last Admin: 10/08/20 23:35 Dose: 15 mg Documented by: Levothyroxine Sodium (Levothyroxine 88 Mcg Tablet) 88 mcg PO QHS [facility] Last Admin: 10/08/20 21:58 Dose: 88 mcg Documented by: Losartan Potassium (Losartan Potassium 100 Mg Tablet) 100 mg PO DAILY [facility] Last Admin: 10/09/20 08:39 Dose: 100 mg Documented by: Meloxicam (Meloxicam 7.5 Mg Tablet) 7.5 mg PO BID [facility] Metoprolol Succinate (Metoprolol(Xl)Succ 100 Mg Tablet) 100 mg PO DAILY [facility] Last Admin: 10/09/20 08:40 Dose: 100 mg Documented by: Morphine Sulfate (Morphine 2 Mg/Ml Syringe) 2 - 4 mg IV Q2H PRN PRN PRN Reason: Pain Score 4-10 Morphine Sulfate (Morphine 4 Mg/Ml Syringe) 2 - 4 mg IV Q2H PRN PRN PRN Reason: Pain Score 4-10 Ondansetron HCl (Ondansetron 4 Mg/2 Ml Vial) 4 mg IV Q8H PRN PRN PRN Reason: NAUSEA Oxycodone HCl (Oxycodone 5 Mg Tablet) 5 - 10 mg PO Q4H PRN PRN PRN Reason: Pain Score 4-10 Last Admin: 10/09/20 08:36 Dose: 5 mg Documented by: Pantoprazole Sodium (Pantoprazole Sodium 20 Mg Tablet) 20 mg PO DAILY PRN PRN Reason: HEARTBURN Promethazine HCl (Promethazine 25 Mg/Ml Syringe) 12.5 mg IM Q6H PRN PRN; Protocol PRN Reason: NAUSEA/VOMITING Senna/Docusate Sodium (Senna/Docusate Sodium 1 Tablet) 2 tablet PO BID [facility] Last Admin: 10/09/20 08:39 Dose: 2 tablet Documented by: Sertraline HCl (Sertraline 50 Mg Tablet) 50 mg PO DAILY [facility] Last Admin: 10/09/20 08:40 Dose: 50 mg Documented by: Sodium Chloride (0.9% Saline Lock 10 Ml Syringe) 10 - 40 ml IV UD PRN PRN Reason: SALINE FLUSH Last Admin: 10/08/20 23:35 Dose: 10 ml Documented by: Medical Necessity - Tobacco Use Smoking Status: Never smoker Assessment/Plan #1 essential hypertension-patient is stable on her current medications at this time #2 hyperlipidemia #3 hypothyroidism #4 severe osteoarthritis left hip-postop day #1 total hip replacement #5 anxiety/depression-patient is on Zoloft Patient appears medically stable at this time Inpatient E&M: 20524 Subs Hosp L2
[2020-10-09 09:56] VITALS: BP 103/43; PULSE 61; RESP 18; TEMP 36.7; O2SAT 96
--- NOTE | 2020-10-09 10:00 | CASEMGMT ---
RITU GARCÍA Face to Face with patient for initial transition planning/care coordination assessment. RN RICKY introduced self and role at [facility]. Patient sitting in chair, alert and oriented. Patient willing to participate in assessment and is able to answer all questions appropriately. Care providers, pharmacy, and demographics verified. Patient wishes to discharge home and is setup for outpatient therapy at [facility] in [place]. Patient states she has no further needs or concerns at this time. CM to follow for discharge planning needs that may arise. PCP: Hosea Specialists: christel Brooks Preferred Pharmacy: [facility] retail at discharge Insurance: [employer] [facility] Prescription Benefit: yes Living Will/HPOA: yes, Fly Perdomo LNOK: Living Arrangements: Patient lives with in a single story home with 4 steps to enter. Patient states she was independent at home prior to surgery. Transportation: DME/C: Patient states she has shower chair, garb bars, raised toilet, cane, and walker. Patient is setup with [facility] in [place] for outpatient therapy starting Tuesday Disposition Plan: Patient to discharge home with outpatient therapy, family support, and follow-up plans in place. Ale GREER, RN, CM
--- NOTE | 2020-10-09 14:26 | CASEMGMT ---
RITU CM in to complete AYALA form with patient. RITU GARCÍA explained AYALA form to patient, patient voiced understanding. Patient signed AYALA form and filed in chart. Patient provided with copy of AYALA form. Patient had no further questions or concerns at this time.
[2020-10-09 15:55] VITALS: BP 106/53; PULSE 63; RESP 16; TEMP 36.3; O2SAT 100
--- NOTE | 2020-10-09 16:28 | PCM.PN.ORT ---
Subjective: Patient is doing well overall. No acute events overnight. She does report thigh pain with weightbearing. She has some moderate swelling. No numbness or tingling. No shortness of breath. No chest pain. Did well with physical therapy. Objective: Postop x-rays show stable well-placed left hip replacement. No evidence of fracturing. - Physical Exam Vitals/I&O's: Vital Signs Temp Pulse Resp BP Pulse Ox 97.3 F L 63 16 106/53 L 100 10/09/20 15:55 10/09/20 15:55 10/09/20 15:55 10/09/20 15:55 10/09/20 15:55 Oxygen Flow Rate (L/min) 6 Oxygen Delivery Method Room Air Weight: 194 lb 10.691 oz Body Mass Index (BMI) 32.3 Intake and Output for Last 24 Hours 10/07/20 10/08/20 10/09/20 23:59 23:59 23:59 Intake Total 5510.50 / 5510.50 805 / 805 Output Total 400 / 400 400 / 400 Balance 5110.50 / 5110.50 405 / 405 General: Alert, Oriented x3, Cooperative Extremities: - - Left lower extremity: Dressing is clean dry and intact Sensations intact to light touch saphenous, sural, superficial peroneal, deep peroneal, and tibial distributions Motors intact EHL, DF, PF calves are soft and supple. Moderate thigh swelling. Microbiology Past 72 Hours 10/07/20 08:30 Interface Orders SARS-CoV-2 Antigen (Rapid) - Final Laboratory Results 10/09/20 05:50: WBC 12.2 H, RBC 3.25 L, Hgb 10.3 L, Hct 31.7 L, MCV 97.5, MCH 31.7, MCHC 32.5, RDW Std Deviation 45.4 H, RDW Coeff of Jesus 12.6, Plt Count 194, MPV 10.3 10/09/20 05:50: Sodium 137, Potassium 4.4, Chloride 104, Carbon Dioxide 25.0, Anion Gap 8, BUN 16, Creatinine 0.97, Estim Creat Clear Calc 48.56, Est GFR (MDRD) Af Amer 73, Est GFR (MDRD) Non-Af 60, BUN/Creatinine Ratio 16.5, Glucose 134 H, Calcium 8.2 L Current Medications Acetaminophen (Acetaminophen 500 Mg Tablet) 1,000 mg PO Q8 [facility] Last Admin: 10/09/20 14:23 Dose: 1,000 mg Documented by: Albuterol Sulfate (Albuterol 2.5 Mg/3 Ml Vial.Neb.) 2.5 mg INHALATION Q2H PRN PRN PRN Reason: Dyspnea, wheezing Aspirin (Aspirin 325 Mg Tablet) 325 mg PO BIDCM [facility] Last Admin: 10/09/20 08:39 Dose: 325 mg Documented by: Atorvastatin Calcium (Atorvastatin Calcium 20 Mg Tablet) 20 mg PO QHS [facility] Last Admin: 10/08/20 21:57 Dose: 20 mg Documented by: Cholecalciferol (Cholecalciferol (Vit D3) 1,000 Unit (25mcg)) 2,000 unit PO DAILY [facility] Last Admin: 10/09/20 08:40 Dose: 2,000 unit Documented by: Enteral Nutritional Formula (Ensure Surgery 237 Ml Liquid) 237 ml PO TIDCM [facility] Last Admin: 10/09/20 12:30 Dose: 237 ml Documented by: Famotidine (Famotidine 20 Mg Tablet) 20 mg PO DAILY [facility] Last Admin: 10/09/20 08:39 Dose: 20 mg Documented by: Hydralazine HCl (Hydralazine 20 Mg/Ml Vial) 10 mg IV Q4H PRN PRN PRN Reason: SBP > 160 Sodium Chloride () 250 mls @ 15 mls/hr IV .[id number] PRN PRN Reason: Saline Flush Sodium Chloride () 250 mls @ 15 mls/hr IV .[id number] PRN PRN Reason: Additional IVPB Infusion Ketorolac Tromethamine (Ketorolac 15 Mg/Ml Vial) 15 mg IV Q6H PRN PRN PRN Reason: Pain Score 1-5 Stop: 10/10/20 09:00 Last Admin: 10/08/20 23:35 Dose: 15 mg Documented by: Levothyroxine Sodium (Levothyroxine 88 Mcg Tablet) 88 mcg PO QHS [facility] Last Admin: 10/08/20 21:58 Dose: 88 mcg Documented by: Losartan Potassium (Losartan Potassium 100 Mg Tablet) 100 mg PO DAILY [facility] Last Admin: 10/09/20 08:39 Dose: 100 mg Documented by: Meloxicam (Meloxicam 7.5 Mg Tablet) 7.5 mg PO BID [facility] Metoprolol Succinate (Metoprolol(Xl)Succ 100 Mg Tablet) 100 mg PO DAILY [facility] Last Admin: 10/09/20 08:40 Dose: 100 mg Documented by: Morphine Sulfate (Morphine 2 Mg/Ml Syringe) 2 - 4 mg IV Q2H PRN PRN PRN Reason: Pain Score 4-10 Morphine Sulfate (Morphine 4 Mg/Ml Syringe) 2 - 4 mg IV Q2H PRN PRN PRN Reason: Pain Score 4-10 Ondansetron HCl (Ondansetron 4 Mg/2 Ml Vial) 4 mg IV Q8H PRN PRN PRN Reason: NAUSEA Oxycodone HCl (Oxycodone 5 Mg Tablet) 5 - 10 mg PO Q4H PRN PRN PRN Reason: Pain Score 4-10 Last Admin: 10/09/20 12:29 Dose: 10 mg Documented by: Pantoprazole Sodium (Pantoprazole Sodium 20 Mg Tablet) 20 mg PO DAILY PRN PRN Reason: HEARTBURN Promethazine HCl (Promethazine 25 Mg/Ml Syringe) 12.5 mg IM Q6H PRN PRN; Protocol PRN Reason: NAUSEA/VOMITING Senna/Docusate Sodium (Senna/Docusate Sodium 1 Tablet) 2 tablet PO BID [facility] Last Admin: 10/09/20 08:39 Dose: 2 tablet Documented by: Sertraline HCl (Sertraline 50 Mg Tablet) 50 mg PO DAILY [facility] Last Admin: 10/09/20 08:40 Dose: 50 mg Documented by: Sodium Chloride (0.9% Saline Lock 10 Ml Syringe) 10 - 40 ml IV UD PRN PRN Reason: SALINE FLUSH Last Admin: 10/08/20 23:35 Dose: 10 ml Documented by: Medical Necessity - Tobacco Use Smoking Status: Never smoker Assessment/Plan Postop day 1 left direct anterior total replacement. 1. DVT prophylaxis: 325 mg aspirin twice daily. 2. Pain control: Tylenol, meloxicam and oxycodone as needed. Controlled pain with increased pain with weightbearing. 3. Elevated white blood cell count: Patient received steroids with surgery yesterday most likely reactive leukocytosis. Otherwise afebrile with stable vital signs 4. Physical therapy: Weightbearing as tolerated, activity as tolerated. Anterior precautions 5. Medical management: Appreciate medical management this patient. Hospitalist notes reviewed. Patient doing well. 6. Disposition: Plan for discharge home today. Dressing can be removed postop day 5. Aspirin for 4 weeks. Outpatient physical therapy is arranged at [facility] in [place] starting October 13. Next follow-up visit in the office October 22. [facility] Office:
--- NOTE | 2020-10-09 16:45 | DCINST_ITS ---
Discharge Diet: No Restrictions Discharge Activity: May Not Drive - while taking narcotic pain medications. May shower in (days): 1 - only if incision is dry and without drainage. Do NOT soak/submerge in tub/pool/crowley/stream/hot tub. Additional Activity Instructions:: Wear elastic stockings for 2 weeks. DO NOT use alcohol with narcotic pain medication. DO NOT make important decisions while taking narcotic medication. If you have problems with taking your medication (rash, itching, nausea, etc.) call the office at once. Call your doctor if your incision/area has: Increased Pain/ Swelling, Increased Redness, Foul Smelling Discharge Call your doctor if you observe: Fever of 101 or Higher Remove Dressing in (days):: 10-13-2020 Additional Dressing/Incision Instructions:: If incision is clean dry and intact may leave the wound open to air and continue showering. If there is continued drainage continue daily dry dressing changes and keep incision clean dry and intact until there is no drainage. Allergies/Adverse Reactions: Allergies No Known Allergies Allergy (Verified 09/24/20 13:52) Medications to take at Discharge Atorvastatin Calcium [Lipitor] 20 mg PO QHS 11/15/17 Cholecalciferol (Vitamin D3) [Vitamin D3] 2,000 unit PO DAILY 11/15/17 Levothyroxine Sodium [Synthroid] 88 mcg PO QHS 11/15/17 Losartan Potassium [Cozaar] 100 mg PO DAILY 11/15/17 Metoprolol Succinate [Toprol Xl] 100 mg PO DAILY 11/15/17 Niacin [Niacin ER] 1,000 mg PO QHS 11/15/17 Omeprazole [Prilosec] 20 mg PO PRN PRN 11/15/17 Acetaminophen [Tylenol] 1,000 mg PO Q8 #90 tab 11/30/17 Sertraline HCl 50 mg PO DAILY 09/24/20 Acetaminophen [Tylenol] 1,000 mg PO Q8 tab 10/09/20 Aspirin 325 mg PO BIDCM tab 10/09/20 Ensure Surgery 237 ml PO TIDCM liquid 10/09/20 Famotidine [Pepcid] 20 mg PO DAILY #30 tab 10/09/20 Meloxicam [Mobic] 7.5 mg PO BID #60 tab 10/09/20 Oxycodone [Oxyir] 5 - 10 mg PO Q4H PRN PRN 7 Days #70 tab 10/09/20 Senna/Docusate Sodium [Senokot-S] 2 tab PO BID tab 10/09/20 The following prescriptions were given: Meloxicam [Mobic] 7.5 mg PO BID #60 tab Transmission Status: Pending to [facility] Oxycodone [Oxyir] 5 - 10 mg PO Q4H PRN PRN 7 Days #70 tab PRN Reason: Pain Score 4-10 Transmission Status: Sent to [facility] Famotidine [Pepcid] 20 mg PO DAILY #30 tab Transmission Status: Pending to [facility] Primary Care Physician: Vijay Jc MD [Primary Care Provider] - Test Results: Test results from this visit will be discussed in further detail at your follow- up appointment, if applicable. Please Follow Up With: Romero Baxter PA-C When: 10-22-2020 11:00
== END 2020-10-09 18:20 | disposition home or self-care (01) ==
LOC: SDC 13:16 → MS3 13:16
PROVIDERS: Anesthesiology; Admitting Provider Specialist; Referring Provider Specialist; Visit Provider Internal Medicine
PROC: (CPT 27284; principal; 2020-10-08 12:05)
DX: M16.12 Unilateral primary osteoarthritis, left hip (principal); M19.90 Unspecified osteoarthritis, unspecified site; E78.00 Pure hypercholesterolemia, unspecified; I10 Essential (primary) hypertension; E78.5 Hyperlipidemia, unspecified; E03.9 Hypothyroidism, unspecified; E66.9 Obesity, unspecified; F41.9 Anxiety disorder, unspecified; F32.9 Major depressive disorder, single episode, unspecified; K21.9 Gastro-esophageal reflux disease without esophagitis; Z79.899 Other long term (current) drug therapy; Z79.82 Long term (current) use of aspirin; Z68.32 Body mass index [BMI] 32.0-32.9, adult
CPT/HCPCS: 27130; 36415; 73501; 73502; 76000; 80048; 82962; 83735; 84443; 85027; 87426; 96361; 96365; 96366; 96375; 97110; 97116; 97162; 97166; 97530; 97535; 99218; 99251; C1776; C9803; J7120; A4216; G0378; G0379; G0463

== ENCOUNTER → 2023-10-12 | Outpatient (CLI) | payer MEDICARE, SELFPAY | END | disposition home or self-care (01) | LOC: MFPLAB 14:43 | PROVIDERS: Visit Provider Family Medicine | DX: Z00.00 Encounter for general adult medical examination without abnormal findings (principal) ==

== ENCOUNTER → 2024-04-10 | Outpatient (CLI) | payer SELFPAY ==
[2024-04-10 12:02] LABS: Absolute Lymphocyte Count 1.91 X10^3/uL (0.83-4.51); Absolute Neutrophil Count 4.7 X10^3/uL (2.0-7.7); Basophil# 0.05 X10^3/uL; Basophil% 0.6 % (0-1); Eosinophil# 0.28 X10^3/uL; Eosinophils% 3.6 % (0-5); Hematocrit 46.2 % (37-47); Hemoglobin 14.8 g/dL (12.0-15.0); Lymphocyte # 1.91 X10^3/ul (0.83-4.51); Lymphocyte % 24.4 % (19-41); Mean Corpuscular Hgb 31.6 pg (27.0-32.0); Mean Corpuscular Volume 98.7 fL (81-99); Mean Platelet Vol. 10.2 fl (6.2-12.0); Monocyte# 0.85 X10^3/uL; Monocyte% 10.9 % (0-10); NRBC Flagged by Analyzer 0 % (0-5); Neutrophil % 60.1 % (47-70); Platelet Count 246 K/mm3 (150-450); RBC Distribution Width CV 13.3 % (11.6-14.6); RBC Distribution Width SD 48.4 fl (35.1-43.9); Red Blood Count 4.68 M/mm3 (4.2-5.4); White Blood Count 7.8 K/mm3 (4.4-11.0)
[2024-04-10 12:35] LABS: Vitamin D,25 Hydroxy 56.5 ng/mL
[2024-04-10 12:52] LABS: AST(SGOT) 17 U/L (15-37); Alanine Aminotransfer ALT/SGPT 25 U/L (13-56); Albumin, Serum 3.7 g/dL (3.2-5.0); Alkaline Phosphatase 73 U/L (45-117); Anion Gap 8 (5-15); BUN 13 mg/dL (7-18); BUN/Creat Ratio 11.2 RATIO (10-20); Calcium,Total 9.4 mg/dL (8.5-10.1); Chloride 104 mmol/L (98-107); Cholesterol 142 mg/dL (200); Creatinine, Serum 1.16 mg/dL (0.55-1.02); EST Glomerular Filtration Rate 49 mL/min (>60); Est Glom Filt Rate - Afr Amer 59 mL/min (>60); Globulin 3.7 g/dL (2.2-4.2); Glucose 108 mg/dL (74-106); High Density Lipoprotein 58 mg/dL; Potassium 3.8 mmol/L (3.5-5.1); Protein, Total 7.4 g/dL (6.4-8.2); Sodium Level 137 mmol/L (136-145); Thyroid Stim Hormone (TSH) 0.542 uIU/mL (0.358-3.740); Triglycerides 100 mg/dL; Very Low Density Lipoprotein 20 mg/dL (5-40)
== END | disposition home or self-care (01) ==
LOC: MFPLAB 09:42
PROVIDERS: PCP Family Medicine; Visit Provider Family Medicine
DX: E78.5 Hyperlipidemia, unspecified (principal); M19.90 Unspecified osteoarthritis, unspecified site
CPT/HCPCS: 36415; 80053; 80061; 82306; 84443; 85025

== ENCOUNTER → 2024-04-20 | Outpatient (CLI) | payer MEDICARE, SELFPAY ==
--- NOTE | 2024-04-20 12:43 | US_ITS ---
EXAM: US SOFT TISSUES HEAD AND NECK, THYROID CLINICAL INDICATION: Hx of partial thyroidectomy, hx nodules on other half TECHNIQUE: Greyscale and color doppler imaging was performed of the thyroid gland. COMPARISON: No relevant prior studies available. FINDINGS: LEFT THYROID LOBE: The left thyroid lobe is surgically absent. No residual left-sided thyroid tissue is evident. RIGHT THYROID LOBE: The right thyroid lobe measures 3.7 x 1.4 x 1.1 cm. There is a 7 mm nodule within the right thyroid lobe. This nodule is mixed cystic and solid, hyperechoic or isoechoic, tfawz-pwrb-wyly, smoothly marginated and contains no echogenic foci. TI-RADS points: 2. TI-RADS category: TR2. This nodule is not suspicious and no FNA or follow-up is necessary. Within the right thyroid lobe, there is a 0.9 cm nodule. This nodule is solid or almost completely solid, hyperechoic or isoechoic, [id number]-[id number], ill-defined and contains no echogenic foci. TI-RADS points: 3. TI-RADS category: TR3. This nodule is mildly suspicious but no FNA or follow-up is necessary given the small size of this nodule. Within the right thyroid lobe, there is a 4 mm cyst. TI-RADS points: 0. TI-RADS category: TR1. This nodule is benign and no FNA or follow-up is necessary. ISTHMUS: The thyroid isthmus measures 0.1 cm. No thyroid nodules are present. US/Thyroid IMPRESSION: 1. Right-sided thyroid nodules as above. Based on the features in size, and no FNA or follow-up is necessary. 2. Status post left hemithyroidectomy. Electronically Signed: Maury Badillo, at 23:07 EDT ,
== END | disposition home or self-care (01) ==
PROVIDERS: PCP Family Medicine; Referring Provider Family Medicine; Visit Provider Family Medicine
DX: E04.1 Nontoxic single thyroid nodule (principal)
CPT/HCPCS: 76536

== ENCOUNTER 2024-07-02 07:58 | Day surgery (SDC) | payer MEDICARE, SELFPAY ==
[2024-07-02] VITALS (9 sets, daily range): BP systolic 102–149; BP diastolic 61–96; PULSE 81–100; RESP 16; TEMP 36.4–36.6; O2SAT 94–98; BMI 32.3
--- NOTE | 2024-07-02 08:17 | PCM.PRE.AN2 ---
ASA Classification* ASA Classification ASA Classification: 2 Assessment & Plan Anesthesia* Anesthesia Assessment Anesthesia Assessment: Discussed sedation and/or anesthesia options, risks, benefits, and alternatives with patient/parents/legal guardian/POA. Questions invited. The patient/parents/legal guardian/POA seems to understand and agrees to proceed with anesthesia plan. Reviewed the physical assessment, medical history, allergy history and patient home medications list prior to surgery/procedure/anesthetic and documented any changes. Performed airway and anesthesia risk assessments. Anesthesia Type Anesthesia Type: MAC Anesthesia Focused Assessment* Airway Assessment Mouth opens: >3 cm Mallampati Score: II Focused Labs Anesthesia Preop lab: CBC WBC 7.8 K/mm3 (4.4-11.0) 04/10/24 09:43 RBC 4.68 M/mm3 (4.2-5.4) 04/10/24 09:43 Hgb 14.8 g/dL (12.0-15.0) 04/10/24 09:43 Hct 46.2 % (37-47) 04/10/24 09:43 Plt Count 246 K/mm3 (150-450) 04/10/24 09:43 CHEMISTRY Potassium 3.8 mmol/L (3.5-5.1) 04/10/24 09:43 Sodium 137 mmol/L (136-145) 04/10/24 09:43 Magnesium 2.1 mg/dL (1.6-2.6) 10/08/20 11:02 BUN 13 mg/dL (7-18) 04/10/24 09:43 Creatinine 1.16 mg/dL (0.55-1.02) H 04/10/24 09:43 Glucose 108 mg/dL (74-106) H 04/10/24 09:43 POC Glucose 90 mg/dL (70-110) 10/08/20 11:19 TSH 0.542 uIU/mL (0.358-3.740) 04/10/24 09:43 COAG Pre-Assessment Diagnosis/Proposed Procedure Planned Operative Procedure(s): EGD/CSCOPE Anesthesia History Anesthesia History - hand mold maker: Anesthesia History - hand mold maker Hx Hospitalization No 06/27/24 10:25 Any Problems With Anesthesia No 06/27/24 10:25 Cholinesterase deficiency No 06/27/24 10:25 You/Your Family Experience No 06/27/24 10:25 fever (hyperthermia) with Relationship Recent Exposure to Contagious No 10/08/20 10:52 Disease Does patient have nerve No 06/27/24 10:25 stimulator Patient instructed to have device shut off --Does patient have Pacemaker or ICD? When Was Last Pacemaker Check QUESTION #4 FULL TEXT: You/Your Family Experience fever (hyperthermia) with Anesthesia Last Oral Intake Last Oral intake: Last Oral Intake NPO since Meds taken in AM with sips of water? Meds patient instructed to take am of surgery PONV PONV - hand mold maker: PONV - hand mold maker Female Yes 06/27/24 10:25 HX of Motion Sickness No 06/27/24 10:25 HX of N/V After Surgery No 06/27/24 10:25 Non-Smoker Yes 06/27/24 10:25 Duration of Surgery greater No 06/27/24 10:25 than 60 minutes Number of Risk Factors 2 06/27/24 10:25 PONV Score Moderate Risk 06/27/24 10:25 Height & Weight Height & Weight: Anesthesia: Height & Weight Height 5 ft 5 in 06/01/24 13:42 Respiratory Assessment Respiratory Assessment - hand mold maker: Respiratory Tract Infection Hx - hand mold maker Hx Respiratory Tract Infection No 06/27/24 10:25 STOP Sleep Apnea STOP Sleep Apnea - hand mold maker: STOP Sleep Apnea - hand mold maker Hx Hypertension Yes: CONTROLLED WITH MEDS 06/27/24 10:25 Hx Sleep Apnea No 06/27/24 10:25 CPAP BIPAP Do you snore loudly (louder No 06/27/24 10:25 than talking or can be heard Do you often feel tired/ No 06/27/24 10:25 fatigued/ sleepy during daytime? Has anyone observed you stop No 06/27/24 10:25 breathing during sleep? STOP Results Negative 06/27/24 10:25 QUESTION #5 FULL TEXT : Do you snore loudly (louder than talking or can be heard through closed doors)? 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 Specify any problems Hx of Preganancy in last 3 No 06/27/24 10:25 Months Nurse Filling Out Transfusion DSCHRIBER 06/27/24 10:25 & Questions: Date: 06/27/24 06/27/24 10:25 Time: 10:26 06/27/24 10:25 Patient unable to answer at this time (ie. confused, unrespo /Reproduction History /Reproductive History - hand mold maker: /Reproductive Hx- hand mold maker Hx Now No 06/27/24 10:25 Gestational Age (in weeks): EDC: Hx Hx Para Hx Section SAB No 06/27/24 10:25 PFSH Medical History History of echocardiogram History of stress test Loss of hearing Post-menopausal Anxiety Thyroid disease Arthritis High cholesterol Easy bruising Back pain Dietary restriction Colitis Gastric reflux Non-smoker Palpitations Anemia Hemorrhoids Acid reflux Blood in stool Constipation Home Medications ?Medication ?Instructions ?Recorded ?Last Taken ?Type atorvastatin 20 mg tablet 20 mg PO QHS CHOLESTEROL 11/15/17 Unknown History levothyroxine 100 mcg tablet 88 mcg PO QHS THYROID 11/15/17 07/01/24 History (Synthroid) losartan 50 mg tablet (Cozaar) 100 mg PO DAILY BP 11/15/17 07/02/24 History metoprolol succinate 50 mg 50 mg PO DAILY BP 11/15/17 10/08/20 History tablet,extended release 24 hr (Toprol XL) niacin 1,000 mg tablet,extended 500 mg PO QHS SUPPLEMENT 11/15/17 Unknown History release 24 hr sertraline 50 mg tablet 50 mg PO QHS 09/24/20 Unknown History aspirin 81 mg tablet,delayed 81 mg PO QDAY 06/01/24 06/26/24 History release (Adult Aspirin Regimen) ferrous sulfate 325 mg (65 mg 325 mg PO QDAY 06/01/24 06/25/24 History iron) tablet acetaminophen 650 mg 1,300 mg PO Q12H 06/27/24 Unknown History tablet,extended release calcium 600 mg (as 1 tab PO DAILY 06/27/24 Unknown History carbonate)-vitamin D3 5 mcg (200 unit) tablet famotidine 20 mg tablet 20 mg PO BID 06/27/24 07/02/24 History sennosides 8.6 mg-docusate sodium 2 tab PO BID PRN constipation 06/27/24 Unknown History 50 mg tablet Allergy/AdvReac Type Severity Reaction Status Date / Time No Known Allergies Allergy Verified 07/02/24 08:14 Family History Father Arthritis Hypertension High cholesterol Mother Diabetes Hypertension Kidney disease Sister Thyroid disorder Surgical History Hx of colonoscopy History of left hip replacement History of right hip replacement History of lobectomy of thyroid Social History Smoking Status: Never smoker alcohol intake: never substance use type: does not use Review of Systems (Anesthesia) ROS Narrative System reviewed and no additional complaints, except as documented.
--- NOTE | 2024-07-02 08:19 | H&P.OPEN ---
HPI - General General Date of Service: 07/02/24 HPI Narrative ANÍBAL SHER, is a 73 F who presents for an EGD and colonoscopy due to melena. Patient has been taking Pepcid 40 mg p.o. daily and states that her stools are now brown. Patient denies any other changes. office visit 06/01/24 HPI HPI: 73-year-old female presents due to melena. Patient states that she had a colonoscopy in 2019 which was negative. Patient states for the last 2 to 3 weeks she has been having black stools. Patient denies taking iron or Pepto-Bismol. Patient does state that she has occasional GERD symptoms depending on type of food mainly burping but she is only on the Pepcid as needed. Patient never had previous EGD. Patient states she does have bowel movements daily. [facility] Medical History History of echocardiogram History of stress test Loss of hearing Post-menopausal Anxiety Thyroid disease Arthritis High cholesterol Easy bruising Back pain Dietary restriction Colitis Gastric reflux Non-smoker Palpitations Anemia Hemorrhoids Acid reflux Blood in stool Constipation Home Medications ?Medication ?Instructions ?Recorded ?Last Taken ?Type atorvastatin 20 mg tablet 20 mg PO QHS CHOLESTEROL 11/15/17 Unknown History levothyroxine 100 mcg tablet 88 mcg PO QHS THYROID 11/15/17 07/01/24 History (Synthroid) losartan 50 mg tablet (Cozaar) 100 mg PO DAILY BP 11/15/17 07/02/24 History metoprolol succinate 50 mg 50 mg PO DAILY BP 11/15/17 10/08/20 History tablet,extended release 24 hr (Toprol XL) niacin 1,000 mg tablet,extended 500 mg PO QHS SUPPLEMENT 11/15/17 Unknown History release 24 hr sertraline 50 mg tablet 50 mg PO QHS 09/24/20 Unknown History aspirin 81 mg tablet,delayed 81 mg PO QDAY 06/01/24 06/26/24 History release (Adult Aspirin Regimen) ferrous sulfate 325 mg (65 mg 325 mg PO QDAY 06/01/24 06/25/24 History iron) tablet acetaminophen 650 mg 1,300 mg PO Q12H 06/27/24 Unknown History tablet,extended release calcium 600 mg (as 1 tab PO DAILY 06/27/24 Unknown History carbonate)-vitamin D3 5 mcg (200 unit) tablet famotidine 20 mg tablet 20 mg PO BID 06/27/24 07/02/24 History sennosides 8.6 mg-docusate sodium 2 tab PO BID PRN constipation 06/27/24 Unknown History 50 mg tablet Allergy/AdvReac Type Severity Reaction Status Date / Time No Known Allergies Allergy Verified 07/02/24 08:14 Family History Father Arthritis Hypertension High cholesterol Mother Diabetes Hypertension Kidney disease Sister Thyroid disorder Surgical History Hx of colonoscopy History of left hip replacement History of right hip replacement History of lobectomy of thyroid Social History Smoking Status: Never smoker alcohol intake: never substance use type: does not use Past Medical/Surgical History Planned Operation Planned Operative Procedure(s): EGD/CSCOPE S.O.S: No Previous Hospitalizations/Surgeries HX Hospitalizations: No HX of Surgeries: Rt Total hip 2018 PARTIAL THYROIDECTOMY 2009 LEFT LITTLE FINGER SURGERY 2017/REPAIR COLONOSCOPIES X3 CATARACT RIGHT EYE 2015 Any Problems With Anesthesia: No You/Your Family Experience Fever (Hyperthermia) With Anes: No Cholinesterase deficiency: No Cardiovascular Hx Chest Pain within Last 2 months: No Hx of Irregular Heartbeat and/or Afib: No Hx Heart Attack: No Hx Congestive Heart Failure: No Hx Rheumatic Fever: No Hx Hypertension: Yes (CONTROLLED WITH MEDS) Hx Internal Defibrillator: No Hx Pacemaker: No Hx Cardiac Catheterization: No Hx Cardiac Surgery/Stents/Etc.: No Hx Stress Test: Yes ([facility] 07/2020) Hx Pain in Legs when Walking/Leg Cramps: No Respiratory Chronic Cough: No HX of Shortness of Breath: No Hoarseness: No Hx Chronic Obstructive Pulmonary Disease (COPD): No Hx Asthma: No Hx Emphysema: No Hx Sleep Apnea: No Hx Respiratory Tract Infection/Cold (presently): No Do You Snore Loudly (louder than talking or can be heard): No Do You Often Feel Tired/ Fatigued/ Sleepy Dring Daytime?: No Has Anyone Observed You Stop Breathing During Sleep?: No Result (for STOP score): Negative Hx Smoking: No Smoking Status: Never smoker Gastrointestinal Controlled With Meds: Yes (OTC PRILOSEC, PRN) Hx Gastrointestinal Disorders: Yes (HX COLITIS, controlled) Hx Gastrointestinal Bleed: No Hx Ulcer: No Hx Hiatal Hernia: No Difficulty Chewing/Swallowing: No Special diet followed at home: No Hx Unplanned Weight Loss of 20#: No HX Unplanned Weight Gain of 20#: No Neurological Hx Seizures: No HX Syncope/Blackout Spells/Unconsciousness: No Hx Transient Ischemic Attacks (TIA): No Hx Multiple Sclerosis: No Hx Parkinson's Disease: No Hx Head/Neck Injury: No Hx Headaches: No Hx Back Injury/Pain: Yes (DDD, LOWER BACK PAIN) Recent Onset of Speech Difficulty: No Restless Legs: No Does patient have nerve stimulator: No Blood Disorder Hx Leukemia: No Bleeding Tendencies: No Hx Deep Vein Thrombosis: No Hx High Cholesterol: Yes (ON MED) Blood Transmitted Disease: No Hx Hepatitis: No Hx Cirrhosis: No Hx Anemia: No Hx Blood Disorders: No Reproduction : No Is Patient Lactating: No Hx Hysterectomy: No Hx Tubal Ligation: No Are You Post Menopause: Yes Genitourinary Hx Renal Disease: No Hx Dialysis: No Musculoskeletal Hx Arthritis: Yes Hx Rheumatoid Arthritis: No Hx Gout: No Recent Onset of an Orthopedic Problem: Yes (CHRONIC HIP PAIN) Endocrine Hx Diabetes: No Insulin: No Thyroid Disease: Yes (ON MED) Hx Steroid Therapy: No Psycho/Social Hx Substance Use: No Hx Alcohol Use: No Hx Anxiety: Yes Hx Depression: No Mental Illness: No Hx Dementia: No Miscellaneous Hx Cancer: No Recent Exposure to Contagious Disease: No Hx of C-Diff: No Any Loose Teeth: No Allergies No Known Allergies Allergy (Verified 07/02/24 08:14) Discharge Is Pt Admitted From a Senior Living, or a Halfway: No After D/C, Where Do you Plan to Go: Return Home From the PAT History Number of Risk Factors: 3 Vital Signs Vital Signs Vital Signs: 07/02/24 08:16 07/02/24 08:16 Temperature 97.6 F L Temperature Source Temporal Pulse Rate 81 Respiratory Rate 16 Respiratory Pattern Normal Blood Pressure 149/96 H Blood Pressure Mean 113 Blood Pressure Source Monitor Blood Pressure Position Semi-Fowlers Blood Pressure Location Left Arm Pulse Ox 98 Oxygen Delivery Method Room Air Weight Weight: 194 lb 0.108 oz Body Mass Index (BMI) 32.3 Physical Exam Const alert, oriented x3 and no apparent distress HEENT normocephalic and head/scalp atraumatic Resp normal respiratory effort Cardio regular rate GI soft to palpation and non-tender; Negative for non-distended Palpation: Negative for guarding Extremity no clubbing, cyanosis or edema Skin no rashes or lesions noted Neuro CN's II-XII intact bilaterally Psych mental status grossly normal Assessment & Plan Assessment/Plan (1) Melena: (2) Acid reflux: Surgery Risks - Colonoscopy I discussed with the patient the risks of the procedure: Yes Risks Include but are not Limited To: Plan for an EGD and colonoscopy risks include but are not limited to: Bleeding, perforation requiring further surgery, inability to complete colonoscopy requiring barium enema.
--- NOTE | 2024-07-02 09:30 | IMM_PTH ---
PATIENT: ANÍBAL SHER LOC: EN U#:[id number] AGE/SX: 73/F ROOM: RE07/02/[address]: Dr. Aislinn Castillo MD : 1950 BED: DIS: 07/02/2024 SPEC #: [id number] RECD: 07/02/24 11:49 STATUS: MANSOOR REQ #: [id number] GINO: 07/02/24 09:[address]: Aislinn Castillo DEPT: IMMUNOHISTOCHEMISTRY RECD BY: Win Hsu ENTERED: 07/02/24 11:50 SP TYPE: IMMUNO OTHR DR: Nelda Martinez MD Tissues: Pylorus Procedures: H Pylori (initial) PHYSICIAN & INSTITUTION [place] [address] SPECIMEN INFORMATION: Tissue Source: A- Pre-pyloric biopsy Clinical Info: Dilcia, acid reflux Specimen Number: [id number] CPT code: 47345 METHODOLOGY: Deparaffinized sections of prefer/formalin-fixed tissue or PAP/DQ stained slides are incubated with monoclonal/polyclonal antibodies/oligonucleotide probes. Localization is made via biotin free immunoperoxidase method. Appropriate controls are performed and reacted as expected. Results on target cell population are indicated in the following table: RESULTS: ANTIBODY / CLONE RESULT Block A H Pylori (polyclonal) negative These tests were developed and their performance characteristics determined by [facility]. They may not have been cleared or approved by the U.S. Food and Drug Administration. The FDA has determined that such clearance or approval is not necessary. The above immunohistochemical/dualISH markers are ordered and reviewed by the Pathologist. INTERPRETATION: A. Pre-pyloric, biopsy: Negative for Helicobacter pylori organisms. AM 07/03/2024
--- NOTE | 2024-07-02 09:30 | COLBX_PTH ---
PATIENT: ANÍBAL SHER LOC: EN U#:[id number] AGE/SX: 73/F ROOM: RE07/02/[address]: Dr. Aislinn Castillo MD : 1950 BED: DIS: 07/02/2024 SPEC #: [id number] RECD: 07/02/24 10:55 STATUS: MANSOOR REOniel #: [id number] GINO: 07/02/24 09:[address]: Aislinn Castillo DEPT: SURGICAL PATHOLOGY RECD BY: Sushma Barraza ENTERED: 07/02/24 11:31 SP TYPE: COLON BX OTHR DR: Nelda Martinez MD Tissues: A - Pylorus B - Gastric mucous membrane Procedures: Special Stain Group I Surgery Specimen Level IV Alcian Blue/PAS (control) HEADER OPERATION: Colonoscopy, EGD and biopsy PRE-OP DIAGNOSIS: Melena, acid reflux TISSUE SUBMITTED: A- Pre-pyloric biopsy, B- Gastroesophageal junction biopsy MICROSCOPIC DIAGNOSIS A. Pre-pyloric biopsy: Mild chronic inflammation. See comment. B. Gastroesophageal junction, biopsy: Mild chronic inflammation. Minimal acute inflammation. No evidence of goblet cell metaplasia. See comment. AM. 07/03/2024 COMMENT A. The results of immunohistochemistry for Helicobacter pylori will be reported separately ([id number]). B. Alcian blue/PAS stain with matched control is used in the evaluation of the specimen. MICROSCOPIC DESCRIPTION Slides are reviewed. GROSS DESCRIPTION A. Received in fixative is one container labeled with the patient's name and designated Pre-pyloric biopsy. The specimen consists of one irregular fragment of light wilde soft tissue that measures 0.5 x 0.3 x 0.1 cm. The specimen is totally submitted in one cassette. B. Received in fixative is one container labeled with the patient's name and designated GE junction biopsy. The specimen consists of one irregular fragment of light wilde soft tissue that measures 0.5 x 0.5 x 0.1 cm. The specimen is totally submitted in one cassette. AM. 07/02/2024 TC:2 CPT:81396h9,09556
--- NOTE | 2024-07-02 10:02 | OP.EGD_ITS ---
Patient Name: Mine Perdomo Procedure Date: 07/02/2024 9:18 AM Date of : 1950 Age: 73 Procedure: Upper GI endoscopy Indications: Melena Providers: Aislinn Castillo MD Referring MD: Nelda Martinez Md Medicines: Monitored Anesthesia Care Complications: No immediate complications. Procedure: Pre-Anesthesia Assessment: - Prior to the procedure, a History and Physical was performed, and patient medications and allergies were reviewed. The patient's tolerance of previous anesthesia was also reviewed. The risks and benefits of the procedure and the sedation options and risks were discussed with the patient. All questions were answered, and informed consent was obtained. Prior Anticoagulants: The patient has taken no anticoagulant or antiplatelet agents. ASA Grade Assessment: Per anesthesia. After reviewing the risks and benefits, the patient was deemed in satisfactory condition to undergo the procedure. After obtaining informed consent, the endoscope was passed under direct vision. Throughout the procedure, the patient's blood pressure, pulse, and oxygen saturations were monitored continuously. The Colonoscope was introduced through the mouth, with the intention of advancing to the duodenum. The scope was advanced to the pylorus before the procedure was aborted. Medications were given. The upper GI endoscopy was technically difficult and complex due to narrowing at pylorus. The procedure was aborted due to stenosis. Stenosis was found at the pylorus and unable to pass with the scope did not allow for the successful completion of the procedure. Scope In: 9:29:51 AM Scope Out: 9:38:14 AM Total Procedure Duration Time 0 hours 8 minutes 23 seconds Findings: The Z-line was irregular and was found 37 cm from the incisors. Biopsies were taken with a cold forceps for histology. Moderately erythematous mucosa with stigmata of recent bleeding was found in the prepyloric region of the stomach. Biopsies were taken with a cold forceps for histology. Biopsies were taken with a cold forceps for Helicobacter pylori cultures. An Unable to Pass scope???moderate stenosis was found at the pylorus. This was non-traversed. Impression: - The procedure was aborted due to stenosis. - Z-line irregular, 37 cm from the incisors. Biopsied. - Erythematous mucosa in the prepyloric region of the stomach. Biopsied. - Gastric stenosis was found at the pylorus. Recommendation: - Await pathology results. - Repeat upper endoscopy Due to pyloric stenosis will likely require GI referral, will treat with PPI and carafate. - Use Prilosec (omeprazole) 40 mg PO daily. - Use sucralfate tablets 1 gram PO QID for 2 months. - Continue present medications. Procedure Code(s): --- Professional --- 55279, 52, Esophagogastroduodenoscopy, flexible, transoral; with biopsy, single or multiple Diagnosis Code(s): --- Professional --- K22.89, Other specified disease of esophagus K31.89, Other diseases of stomach and duodenum K31.1, Adult hypertrophic pyloric stenosis K92.1, Melena (includes Hematochezia) CPT copyright 2021 [employer]. All rights reserved. The codes documented in this report are preliminary and upon record pressman review may be revised to meet current compliance requirements. MD Aislinn Canales MD 07/02/2024 10:01:54 AM This report has been signed electronically. Number of Addenda: 0 Note Initiated On: 07/02/2024 9:18 AM
--- NOTE | 2024-07-02 10:02 | OP.CCLET_ITS ---
07/02/2024 Nelda Martinez Md Re : Upper GI endoscopy procedure for Mine Perdomo Dear Michelle This procedure was performed on Tuesday, July 02, 2024. My impressions and recommendations are as follows: Impressions : - The procedure was aborted due to stenosis. - Z-line irregular, 37 cm from the incisors. Biopsied. - Erythematous mucosa in the prepyloric region of the stomach. Biopsied. - Gastric stenosis was found at the pylorus. Recommendations : - Await pathology results. - Repeat upper endoscopy Due to pyloric stenosis will likely require GI referral, will treat with PPI and carafate. - Use Prilosec (omeprazole) 40 mg PO daily. - Use sucralfate tablets 1 gram PO QID for 2 months. - Continue present medications. My findings are described in the full procedure note, which is enclosed. If I can be of further assistance, please feel free to contact me at Doctor phone number(s): , Work: . Sincerely, MD Aislinn Canales MD 07/02/2024 10:01:54 AM This report has been signed electronically.
--- NOTE | 2024-07-02 10:05 | PCM.POST.ANE ---
Anesthesia: Postop Eval I Current Vital Signs Temperature: 97.8 F Pulse Rate: 82 Blood Pressure: 103/62 Respiratory Rate: 16 Pulse Ox: 98 Oxygen Delivery Method: Room Air Assessment Airway patent: Yes Spontaneous unlabored respirations: Yes Mental status: Awake and Calm nausea: No Vomiting: No Anesthesia Complication: No Fluid Hydration Crystalloid volume administer (ml): 60 Total IV fluid infused: 60 Progress Note Anesthesia document: Postop Eval 1 completed: Yes
--- NOTE | 2024-07-02 10:08 | OP.CCLET_ITS ---
07/02/2024 Nelda Martinez Md Re : Colonoscopy procedure for Mine Perdomo Dear Michelle This procedure was performed on Tuesday, July 02, 2024. My impressions and recommendations are as follows: Impressions : - Hemorrhoids found on perianal exam. - Non-bleeding internal hemorrhoids. - Diverticulosis in the sigmoid colon. - The examination was otherwise normal. - No specimens collected. Recommendations : - Discharge patient to home. - Resume previous diet. - Continue present medications. - Repeat colonoscopy is not recommended due to current age (66 years or older) for screening purposes. My findings are described in the full procedure note, which is enclosed. If I can be of further assistance, please feel free to contact me at Doctor phone number(s): , Work: . Sincerely, MD Aislinn Canales MD 07/02/2024 10:07:59 AM This report has been signed electronically.
--- NOTE | 2024-07-02 10:08 | OP.COLON_ITS ---
Patient Name: Mine Perdomo Procedure Date: 07/02/2024 9:38 AM Date of : 1950 Age: 73 Procedure: Colonoscopy Indications: Melena Providers: Aislinn Castillo MD Referring MD: Nelda Martinez Md Medicines: Monitored Anesthesia Care Patient Profile: This is a 73 year old female. Last Colonoscopy: 2019. Complications: No immediate complications. Procedure: Pre-Anesthesia Assessment: - Prior to the procedure, a History and Physical was performed, and patient medications and allergies were reviewed. The patient's tolerance of previous anesthesia was also reviewed. The risks and benefits of the procedure and the sedation options and risks were discussed with the patient. All questions were answered, and informed consent was obtained. Prior Anticoagulants: The patient has taken no anticoagulant or antiplatelet agents. ASA Grade Assessment: Per anesthesia. After reviewing the risks and benefits, the patient was deemed in satisfactory condition to undergo the procedure. - Prior to the procedure, a History and Physical was performed, and patient medications and allergies were reviewed. The patient's tolerance of previous anesthesia was also reviewed. The risks and benefits of the procedure and the sedation options and risks were discussed with the patient. All questions were answered, and informed consent was obtained. Prior Anticoagulants: The patient has taken no anticoagulant or antiplatelet agents except for aspirin. ASA Grade Assessment: Per anesthesia. After reviewing the risks and benefits, the patient was deemed in satisfactory condition to undergo the procedure. After I obtained informed consent, the scope was passed under direct vision. Throughout the procedure, the patient's blood pressure, pulse, and oxygen saturations were monitored continuously. The Colonoscope was introduced through the anus and advanced to the cecum, identified by the appendiceal orifice, ileocecal valve and palpation. The colonoscopy was performed without difficulty. The patient tolerated the procedure well. The quality of the bowel preparation was good. Scope In: 9:39:55 AM Scope Withdrawal Time 0 hours 7 minutes 21 seconds Scope Out: 9:50:32 AM Total Procedure Duration Time 0 hours 10 minutes 37 seconds Findings: Hemorrhoids were found on perianal exam. Non-bleeding internal hemorrhoids were found. The hemorrhoids were Grade II (internal hemorrhoids that prolapse but reduce spontaneously). A few small-mouthed diverticula were found in the sigmoid colon. The exam was otherwise without abnormality. Impression: - Hemorrhoids found on perianal exam. - Non-bleeding internal hemorrhoids. - Diverticulosis in the sigmoid colon. - The examination was otherwise normal. - No specimens collected. Recommendation: - Discharge patient to home. - Resume previous diet. - Continue present medications. - Repeat colonoscopy is not recommended due to current age (66 years or older) for screening purposes. Procedure Code(s): --- Professional --- 12769, Colonoscopy, flexible; diagnostic, including collection of specimen(s) by brushing or washing, when performed (separate procedure) Diagnosis Code(s): --- Professional --- K64.1, Second degree hemorrhoids K92.1, Melena (includes Hematochezia) K57.30, Diverticulosis of large intestine without perforation or abscess without bleeding CPT copyright 2021 [employer]. All rights reserved. The codes documented in this report are preliminary and upon hardboard coating machine operator review may be revised to meet current compliance requirements. MD Aislinn Canales MD 07/02/2024 10:07:59 AM This report has been signed electronically. Number of Addenda: 0 Note Initiated On: 07/02/2024 9:38 AM
[2024-07-02] MEDS: Pantoprazole Sodium 40 MG in 0.9% Normal Saline (100mL MB+) 100 ML 330 MG IV (10:10)
--- NOTE | 2024-07-02 10:51 | PCM.POSTANE2 ---
Anesthesia Postop Eval I Sum Postop Eval Completion status Anesthesia document: Postop Eval 1 completed: Yes Anesthesia Postop Eval I Summary Anesthesia Postop Eval I Summary: Anesthesia Postop Eval I: Assessment Summary Airway patent Yes 07/02/24 10:06 [email or web address] Spontaneous unlabored Yes 07/02/24 10:06 [email or web address] respirations Mental status Awake,Calm 07/02/24 10:06 [email or web address] nausea No 07/02/24 10:06 [email or web address] Vomiting No 07/02/24 10:06 [email or web address] Anesthesia Postop Eval I: Fluid Summary Crystalloid volume administer 60 07/02/24 10:06 [email or web address] (ml) Colloids volume administered ( ml) Blood Product volume administered (ml) Total IV fluid infused 60 07/02/24 10:06 [email or web address] Anesthesia Postop Eval I: Summary Notes Anesthesia Complication No 07/02/24 10:06 [email or web address] Anesthesia Complication Comment: Post-operative progress note Anesthesia: Postop Eval II Evaluation Mental status: Awake Pain Level: 0 nausea: No Vomiting: No
== END 2024-07-02 10:56 | disposition home or self-care (01) ==
LOC: EN 07:58 → AC 07:59
PROVIDERS: PCP Family Medicine; Referring Provider Family Medicine; Visit Provider Surgery
PROC: 0DJD8ZZ Inspection of Lower Intestinal Tract, Via Natural or Artificial Opening Endoscopic (ICD-10-PCS; CPT 45378; principal; 2024-07-02 09:25)
DX: K31.1 Adult hypertrophic pyloric stenosis (principal); K29.50 Unspecified chronic gastritis without bleeding; K21.9 Gastro-esophageal reflux disease without esophagitis; K64.1 Second degree hemorrhoids; K57.30 Diverticulosis of large intestine without perforation or abscess without bleeding; K22.89 Other specified disease of esophagus; I10 Essential (primary) hypertension; F41.9 Anxiety disorder, unspecified; E07.9 Disorder of thyroid, unspecified; D64.9 Anemia, unspecified; E78.00 Pure hypercholesterolemia, unspecified; M19.90 Unspecified osteoarthritis, unspecified site; Z87.19 Personal history of other diseases of the digestive system; Z79.82 Long term (current) use of aspirin; Z79.899 Other long term (current) drug therapy; Z96.643 Presence of artificial hip joint, bilateral; Z79.890 Hormone replacement therapy
CPT/HCPCS: 43239; 45378; 88305; 88312; 88342; A4216; J2405

== ENCOUNTER 2024-08-02 09:39 | Day surgery (SDC) | payer MEDICARE, SELFPAY ==
--- NOTE | 2024-07-30 14:59 | PAT.ANE_ITS ---
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 When Was Last Pacemaker Check QUESTION #4 FULL TEXT: You/Your Family Experience fever (hyperthermia) with Anesthesia Last Oral Intake Last Oral intake: Last Oral Intake NPO since Meds taken in AM with sips of water? Meds patient instructed to take am of surgery PONV PONV - boarding machine operator: PONV - boarding machine operator Female Yes 07/30/24 11:17 HX of Motion Sickness No 07/30/24 11:17 HX of N/V After Surgery No 07/30/24 11:17 Non-Smoker Yes 07/30/24 11:17 Duration of Surgery greater No 07/30/24 11:17 than 60 minutes Number of Risk Factors 2 07/30/24 11:17 PONV Score Moderate Risk 07/30/24 11:17 Height & Weight Height & Weight: Anesthesia: Height & Weight Height 5 ft 5 in 07/02/24 08:16 Respiratory Assessment Respiratory Assessment - boarding machine operator: Respiratory Tract Infection Hx - boarding machine operator Hx Respiratory Tract Infection No 07/30/24 11:17 STOP Sleep Apnea STOP Sleep Apnea - boarding machine operator: STOP Sleep Apnea - boarding machine operator Hx Hypertension Yes: CONTROLLED WITH MEDS 07/30/24 11:17 Hx Sleep Apnea No 07/30/24 11:17 CPAP BIPAP Do you snore loudly (louder No 07/30/24 11:17 than talking or can be heard Do you often feel tired/ No 07/30/24 11:17 fatigued/ sleepy during daytime? Has anyone observed you stop No 07/30/24 11:17 breathing during sleep? STOP Results Negative 07/30/24 11:17 QUESTION #5 FULL TEXT : Do you snore loudly (louder than talking or can be heard through closed doors)? Tobacco Use History Tobacco Use History - boarding machine operator: Tobacco Use History - boarding machine operator Tobacco Use Smoking Status Never smoker 07/30/24 11:17 Hx Tobacco Use No 07/30/24 11:17 Years Smoking Packs Smoked per Day Smoking Cessation Date was within the last 15 years Hx Smoking Cessation Date Hx Smoking Cessation Counseling Hematologic Medial History Hematologic Hx - boarding machine operator: Hematologic Medical Hx - manager furniture Hx of Blood Transfusion No 07/30/24 11:17 Hx of Transfusion in last 3 No 07/30/24 11:17 Months Date of Last Transfusion (if within last 3 months) Ever experience any problems No 07/30/24 11:17 with transfusion(s)? Specify any problems Hx of Preganancy in last 3 No 07/30/24 11:17 Months Nurse Filling Out Transfusion DSCHRIBER 07/30/24 11:17 & Questions: Date: 07/30/24 07/30/24 11:17 Time: 11:18 07/30/24 11:17 Patient unable to answer at this time (ie. confused, unrespo /Reproduction History /Reproductive History - boarding machine operator: /Reproductive Hx- boarding machine operator Hx Now No 07/30/24 11:17 Gestational Age (in weeks): EDC: Hx Hx Para Hx Section SAB No 07/30/24 11:17 [facility] Medical History (Updated 07/06/24 @ 08:46 by ROCHELLE Irizarry) History of echocardiogram History of stress test Loss of hearing Post-menopausal Anxiety Thyroid disease Arthritis High cholesterol Easy bruising Back pain Dietary restriction Colitis Gastric reflux Non-smoker Palpitations Anemia Hemorrhoids Acid reflux Blood in stool Constipation Home Medications ?Medication ?Instructions ?Recorded ?Last Taken ?Type levothyroxine 100 mcg tablet 88 mcg PO QHS THYROID 11/15/17 07/01/24 History (Synthroid) aspirin 81 mg tablet,delayed 81 mg PO QODAY 06/01/24 07/29/24 History release (Adult Aspirin Regimen) acetaminophen 650 mg 1,300 mg PO Q12H 06/27/24 Unknown History tablet,extended release calcium 600 mg (as 1 tab PO DAILY 06/27/24 Unknown History carbonate)-vitamin D3 5 mcg (200 unit) tablet sucralfate 1 gram tablet 1 g PO 4X/DAY #42 tabs 07/02/24 Unknown Rx atorvastatin 20 mg tablet 20 mg PO QODAY 07/30/24 Unknown History losartan 100 mg tablet 100 mg PO DAILY 07/30/24 Unknown History metoprolol succinate 100 mg 50 mg PO QHS 07/30/24 Unknown History tablet,extended release 24 hr niacin 500 mg tablet 500 mg PO QODAY 07/30/24 Unknown History omeprazole 40 mg capsule,delayed 40 mg PO QHS 07/30/24 Unknown History release sertraline 50 mg tablet 50 mg PO QHS 07/30/24 Unknown History Allergy/AdvReac Type Severity Reaction Status Date / Time No Known Allergies Allergy Verified 07/30/24 11:08 Family History Father Arthritis Hypertension High cholesterol Mother Diabetes Hypertension Kidney disease Sister Thyroid disorder Surgical History (Updated 07/30/24 @ 11:21 by Kait Castillo) History of esophagogastroduodenoscopy (EGD) Hx of colonoscopy History of left hip replacement History of right hip replacement History of lobectomy of thyroid Social History (Updated 07/05/24 @ 12:05 by Lenka Ely LPN) Smoking Status: Never smoker alcohol intake: never substance use type: does not use Audit: Pertinent Findings Pertinent Findings EKG Perinent findings: July 04, 2020. Sinus rhythm. Slight high lateral repolarization disturbance?consider ischemia. Left ventricular overload. Small negative T in aVL Stress test pertinent findings: July 17, 2020. Normal stress without evidence of ischemia or infarct. Ejection fraction 65%. Echo (EF%) pertinent findings: July 17, 2020. Ejection fraction of 55 to 60%. No aortic stenosis noted. Recommendation Anesthesia Recommendation Anesthesia recommendation: OPTIMIZED for anesthesia
[2024-08-02] VITALS (8 sets, daily range): BP systolic 83–154; BP diastolic 57–76; PULSE 62–70; RESP 16; TEMP 36.2–36.8; O2SAT 94–100; BMI 32.6
--- NOTE | 2024-08-02 10:30 | PCM.PRE.AN2 ---
ASA Classification* ASA Classification ASA Classification: 2 Assessment & Plan Anesthesia* Anesthesia Assessment Anesthesia Assessment: Discussed sedation and/or anesthesia options, risks, benefits, and alternatives with patient/parents/legal guardian/POA. Questions invited. The patient/parents/legal guardian/POA seems to understand and agrees to proceed with anesthesia plan. Reviewed the physical assessment, medical history, allergy history and patient home medications list prior to surgery/procedure/anesthetic and documented any changes. Performed airway and anesthesia risk assessments. Anesthesia Type Anesthesia Type: MAC History Source History Obtained from:: Patient and Chart Anesthesia Focused Assessment* Temperature: 98.3 F Pulse Rate: 62 Blood Pressure: 154/76 Respiratory Rate: 16 Pulse Ox: 98 Oxygen Delivery Method: Room Air Airway Assessment Mouth opens: >3 cm Mallampati Score: I Teeth Condition: Chipped/Broken (Patient has a recently broken right upper molar #4. She has not been able to get this seen by dentist yet. Will have to keep an eye on it) Neck Range of motion (ROM): Limited ROM (somewhat decreased extension) Focused Labs Anesthesia Preop lab: CBC WBC 7.8 K/mm3 (4.4-11.0) 04/10/24 09:43 RBC 4.68 M/mm3 (4.2-5.4) 04/10/24 09:43 Hgb 14.8 g/dL (12.0-15.0) 04/10/24 09:43 Hct 46.2 % (37-47) 04/10/24 09:43 Plt Count 246 K/mm3 (150-450) 04/10/24 09:43 CHEMISTRY Potassium 3.8 mmol/L (3.5-5.1) 04/10/24 09:43 Sodium 137 mmol/L (136-145) 04/10/24 09:43 Magnesium 2.1 mg/dL (1.6-2.6) 10/08/20 11:02 BUN 13 mg/dL (7-18) 04/10/24 09:43 Creatinine 1.16 mg/dL (0.55-1.02) H 04/10/24 09:43 Glucose 108 mg/dL (74-106) H 04/10/24 09:43 POC Glucose 90 mg/dL (70-110) 10/08/20 11:19 TSH 0.542 uIU/mL (0.358-3.740) 04/10/24 09:43 COAG Pre-Assessment Diagnosis/Proposed Procedure Planned Operative Procedure(s): EGD Anesthesia History 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 When Was Last Pacemaker Check QUESTION #4 FULL TEXT: You/Your Family Experience fever (hyperthermia) with Anesthesia Last Oral Intake Last Oral intake: Last Oral Intake NPO since 22:00 08/02/24 10:04 Meds taken in AM with sips of Yes 08/02/24 10:04 water? Meds patient instructed to LOSARTAN 08/02/24 10:04 take am of surgery Any additional information?: Yes Meds taken in AM with sips of water?: Yes PONV PONV - plastic parts fabricator: PONV - plastic parts fabricator Female Yes 07/30/24 11:17 HX of Motion Sickness No 07/30/24 11:17 HX of N/V After Surgery No 07/30/24 11:17 Non-Smoker Yes 07/30/24 11:17 Duration of Surgery greater No 07/30/24 11:17 than 60 minutes Number of Risk Factors 2 07/30/24 11:17 PONV Score Moderate Risk 07/30/24 11:17 Height & Weight Height & Weight: Anesthesia: Height & Weight Height 5 ft 5 in 08/02/24 10:04 Weight: 89 kg 08/02/24 10:04 Body Mass Index (BMI) 32.6 08/02/24 10:04 Respiratory Assessment Respiratory Assessment - plastic parts fabricator: Respiratory Tract Infection Hx - plastic parts fabricator Hx Respiratory Tract Infection No 07/30/24 11:17 STOP Sleep Apnea STOP Sleep Apnea - plastic parts fabricator: STOP Sleep Apnea - plastic parts fabricator Hx Hypertension Yes: CONTROLLED WITH MEDS 07/30/24 11:17 Hx Sleep Apnea No 07/30/24 11:17 CPAP BIPAP Do you snore loudly (louder No 07/30/24 11:17 than talking or can be heard Do you often feel tired/ No 07/30/24 11:17 fatigued/ sleepy during daytime? Has anyone observed you stop No 07/30/24 11:17 breathing during sleep? STOP Results Negative 07/30/24 11:17 QUESTION #5 FULL TEXT : Do you snore loudly (louder than talking or can be heard through closed doors)? Tobacco Use History Tobacco Use History - plastic parts fabricator: Tobacco Use History - plastic parts fabricator Tobacco Use Smoking Status Never smoker 07/30/24 11:17 Hx Tobacco Use No 07/30/24 11:17 Years Smoking Packs Smoked per Day Smoking Cessation Date was within the last 15 years Hx Smoking Cessation Date Hx Smoking Cessation Counseling Hematologic Medial History Hematologic Hx - plastic parts fabricator: Hematologic Medical Hx - technician helper instrument Hx of Blood Transfusion No 07/30/24 11:17 Hx of Transfusion in last 3 No 07/30/24 11:17 Months Date of Last Transfusion (if within last 3 months) Ever experience any problems No 07/30/24 11:17 with transfusion(s)? Specify any problems Hx of Preganancy in last 3 No 07/30/24 11:17 Months Nurse Filling Out Transfusion DSCHRIBER 07/30/24 11:17 & Questions: Date: 07/30/24 07/30/24 11:17 Time: 11:18 07/30/24 11:17 Patient unable to answer at this time (ie. confused, unrespo /Reproduction History /Reproductive History - plastic parts fabricator: /Reproductive Hx- plastic parts fabricator Hx Now No 07/30/24 11:17 Gestational Age (in weeks): EDC: Hx Hx Para Hx Section SAB No 07/30/24 11:17 PFSH Medical History History of echocardiogram History of stress test Loss of hearing Post-menopausal Anxiety Thyroid disease Arthritis High cholesterol Easy bruising Back pain Dietary restriction Colitis Gastric reflux Non-smoker Palpitations Anemia Hemorrhoids Acid reflux Blood in stool Constipation Home Medications ?Medication ?Instructions ?Recorded ?Last Taken ?Type levothyroxine 100 mcg tablet 88 mcg PO QHS THYROID 11/15/17 07/01/24 History (Synthroid) aspirin 81 mg tablet,delayed 81 mg PO QODAY 06/01/24 07/29/24 History release (Adult Aspirin Regimen) acetaminophen 650 mg 1,300 mg PO Q12H 06/27/24 Unknown History tablet,extended release calcium 600 mg (as 1 tab PO DAILY 06/27/24 Unknown History carbonate)-vitamin D3 5 mcg (200 unit) tablet sucralfate 1 gram tablet 1 g PO 4X/DAY #42 tabs 07/02/24 Unknown Rx atorvastatin 20 mg tablet 20 mg PO QODAY 07/30/24 Unknown History losartan 100 mg tablet 100 mg PO DAILY 07/30/24 08/02/24 07:00 History metoprolol succinate 100 mg 50 mg PO QHS 07/30/24 Unknown History tablet,extended release 24 hr niacin 500 mg tablet 500 mg PO QODAY 07/30/24 Unknown History omeprazole 40 mg capsule,delayed 40 mg PO QHS 07/30/24 Unknown History release sertraline 50 mg tablet 50 mg PO QHS 07/30/24 Unknown History Allergy/AdvReac Type Severity Reaction Status Date / Time No Known Allergies Allergy Verified 07/30/24 11:08 Family History Father Arthritis Hypertension High cholesterol Mother Diabetes Hypertension Kidney disease Sister Thyroid disorder Surgical History History of esophagogastroduodenoscopy (EGD) Hx of colonoscopy History of left hip replacement History of right hip replacement History of lobectomy of thyroid Social History Smoking Status: Never smoker alcohol intake: never substance use type: does not use Review of Systems (Anesthesia) ROS Narrative System reviewed and no additional complaints, except as documented.
--- NOTE | 2024-08-02 10:44 | HP.PCM_ITS ---
HPI - General General Date of Admission: 08/02/24 Date of Service: 08/02/24 HPI Narrative ANÍBAL SHER, is a 73 F who presentsChief Complaint: repeat EGD Details: ANÍBAL SHER, is a 73 F who presents to the office today for establishment [place] surgical OV 06.02.24 with melena for 2-3 weeks. scheduled for colonoscopy and EGD EGD 07.02.24 - The procedure was aborted due to stenosis. - Z-line irregular, 37 cm from the incisors. Biopsied. - Erythematous mucosa in the prepyloric region of the stomach. Biopsied. - Gastric stenosis was found at the pylorus.: Colonoscopy 07.02.24: - Hemorrhoids found on perianal exam. - Non-bleeding internal hemorrhoids. - Diverticulosis in the sigmoid colon. - The examination was otherwise normal. - No specimens collected. OV 07.06.24 Pt tells me she is now longer having black stools after stopping Iron therapy. Since the EGD she has had less belching and indigestion. She continues taking PPI and sucralfate. She denies n/v, blaoting, abdominal pain, diarrhea or constipation. COUNT INCLUDES THE [facility] Medical History History of echocardiogram History of stress test Loss of hearing Post-menopausal Anxiety Thyroid disease Arthritis High cholesterol Easy bruising Back pain Dietary restriction Colitis Gastric reflux Non-smoker Palpitations Anemia Hemorrhoids Acid reflux Blood in stool Constipation Home Medications ?Medication ?Instructions ?Recorded ?Last Taken ?Type levothyroxine 100 mcg tablet 88 mcg PO QHS THYROID 11/15/17 07/01/24 History (Synthroid) aspirin 81 mg tablet,delayed 81 mg PO QODAY 06/01/24 07/29/24 History release (Adult Aspirin Regimen) acetaminophen 650 mg 1,300 mg PO Q12H 06/27/24 Unknown History tablet,extended release calcium 600 mg (as 1 tab PO DAILY 06/27/24 Unknown History carbonate)-vitamin D3 5 mcg (200 unit) tablet sucralfate 1 gram tablet 1 g PO 4X/DAY #42 tabs 07/02/24 Unknown Rx atorvastatin 20 mg tablet 20 mg PO QODAY 07/30/24 Unknown History losartan 100 mg tablet 100 mg PO DAILY 07/30/24 08/02/24 07:00 History metoprolol succinate 100 mg 50 mg PO QHS 07/30/24 Unknown History tablet,extended release 24 hr niacin 500 mg tablet 500 mg PO QODAY 07/30/24 Unknown History omeprazole 40 mg capsule,delayed 40 mg PO QHS 07/30/24 Unknown History release sertraline 50 mg tablet 50 mg PO QHS 07/30/24 Unknown History Allergy/AdvReac Type Severity Reaction Status Date / Time No Known Allergies Allergy Verified 07/30/24 11:08 Family History Father Arthritis Hypertension High cholesterol Mother Diabetes Hypertension Kidney disease Sister Thyroid disorder Surgical History History of esophagogastroduodenoscopy (EGD) Hx of colonoscopy History of left hip replacement History of right hip replacement History of lobectomy of thyroid Social History Smoking Status: Never smoker alcohol intake: never substance use type: does not use ROS Constitutional Constitutional: Denies fatigue, fever(s), poor appetite, weight gain or weight loss Gastrointestinal Gastrointestinal: Denies belching, bloating, change in bowel habits, change in stool character, chewing difficulty, coffee ground emesis, constipation, cramping, diarrhea, dyspepsia, dysphagia, early satiety, excessive flatus, fecal incontinence, heartburn, hematemesis, hematochezia, hemorrhoids, loose stools, melena, nausea, odynophagia, rectal bleeding, tenesmus, vomiting or weight changes Vital Signs Vital Signs Vital Signs: 08/02/24 10:04 08/02/24 10:04 08/02/24 10:41 Temperature 98.3 F 98.3 F Temperature Source Temporal Pulse Rate 62 62 Respiratory Rate 16 16 Respiratory Pattern Normal Blood Pressure 154/76 H 154/76 H Blood Pressure Mean 102 Blood Pressure Source Monitor Blood Pressure Position Semi-Fowlers Blood Pressure Location Right Arm Pulse Ox 98 98 Oxygen Delivery Method Room Air Room Air Weight Weight: 196 lb 3.382 oz Body Mass Index (BMI) 32.6 Physical Exam Const alert, oriented x3 and no apparent distress HEENT normocephalic and head/scalp atraumatic Resp normal respiratory effort Cardio regular rate GI soft to palpation and non-tender; Negative for non-distended Palpation: Negative for guarding Extremity no clubbing, cyanosis or edema Skin no rashes or lesions noted Neuro CN's II-XII intact bilaterally Psych mental status grossly normal Assessment & Plan Assessment/Plan (1) Pyloric stenosis: PLAN: Plan Assessment and Plan (1) Pyloric stenosis: Status: Acute Plan: This is a 73 yo female pt who underwent EGD and colonoscopy with [facility] for melena. EGD was unable to be completed due to stenosis at the pylorus. Pt is no longer having black stools after stopping iron. Her indigestion and belching has improved since being on PPI and sucralfate. SHe will need to undergo repeat EGD to assess this stenosis. SHe was scheduled for this and will continue her medications in the mean time. -Continue PPI and sucralfate -EGD (2) Erosive esophagitis: Status: Acute
--- NOTE | 2024-08-02 12:02 | OP.EGD_ITS ---
Patient Name: Mine Perdomo Procedure Date: 08/02/2024 10:50 AM Date of : 1950 Age: 73 Procedure: Upper GI endoscopy Indications: Epigastric abdominal pain, Suspected gastroparesis Providers: Greg Stallings DO Referring MD: Nelda Martinez Md Medicines: Monitored Anesthesia Care Patient Profile: This is a 73 year old female. Refer to note in patient chart for documentation of history and physical. Patient has symptoms of chronic dyspepsia and chronic nausea. Complications: No immediate complications. Procedure: Pre-Anesthesia Assessment: - Prior to the procedure, a History and Physical was performed, and patient medications and allergies were reviewed. The patient is competent. The risks and benefits of the procedure and the sedation options and risks were discussed with the patient. All questions were answered and informed consent was obtained. Patient identification and proposed procedure were verified by the physician in the pre-procedure area. Mental Status Examination: alert and oriented. Airway Examination: normal oropharyngeal airway and neck mobility. Respiratory Examination: clear to auscultation. CV Examination: normal. Prophylactic Antibiotics: The patient does not require prophylactic antibiotics. Prior Anticoagulants: The patient has taken no anticoagulant or antiplatelet agents except for NSAID medication. ASA Grade Assessment: II - A patient with mild systemic disease. After reviewing the risks and benefits, the patient was deemed in satisfactory condition to undergo the procedure. The anesthesia plan was to use monitored anesthesia care (MAC). Immediately prior to administration of medications, the patient was re-assessed for adequacy to receive sedatives. The heart rate, respiratory rate, oxygen saturations, blood pressure, adequacy of pulmonary ventilation, and response to care were monitored throughout the procedure. The physical status of the patient was re-assessed after the procedure. After obtaining informed consent, the endoscope was passed under direct vision. Throughout the procedure, the patient's blood pressure, pulse, and oxygen saturations were monitored continuously. The was introduced through the mouth, and advanced to the second part of duodenum. The upper GI endoscopy was accomplished without difficulty. The patient tolerated the procedure well. Scope In: 10:56:53 AM Scope Out: 11:50:01 AM Total Procedure Duration Time 0 hours 53 minutes 8 seconds Findings: The examined esophagus was normal. A medium-sized hiatal hernia was present. A medium amount of food (residue) was found in the gastric body. Removal was accomplished with a large-capacity forceps and Rasheed net. Verification of patient identification for the specimen was done. Estimated blood loss was minimal. A benign-appearing, intrinsic severe stenosis was found in the prepyloric region of the stomach and at the pylorus. This was traversed. A TTS dilator was passed through the scope. Dilation with an 18-19-20 mm pyloric balloon dilator was performed. The dilation site was examined and showed moderate improvement in luminal narrowing. Estimated blood loss was minimal. Coagulation for tissue destruction using argon plasma at 0.3 liters/minute and 20 ji was successful. Estimated blood loss was minimal. Localized severely congested mucosa with active bleeding and with stigmata of bleeding was found in the duodenal bulb. Coagulation for hemostasis of bleeding caused by the procedure using argon plasma at 0.3 liters/minute and 20 ji was successful. To move the prolapsed duodenal mucosa that was taking back through the pyloric s, one hemostatic clip was successfully placed. Clip clay burner: [employer]. There was no bleeding at the end of the procedure. No gross lesions were noted in the duodenal bulb. Impression: - Normal esophagus. - Medium-sized hiatal hernia. - A medium amount of food (residue) in the stomach. Removal was successful. - Gastric stenosis was found in the prepyloric region of the stomach and at the pylorus. Dilated. Treated with argon plasma coagulation (APC). - Congested duodenal mucosa. Treated with argon plasma coagulation (APC). Clip was placed. Clip clay burner: [employer]. - No gross lesions in the duodenal bulb. Recommendation: - Discharge patient to home. - Full liquid diet today. - Continue present medications. - No aspirin, ibuprofen, naproxen, or other non-steroidal anti-inflammatory drugs for 2 weeks. Procedure Code(s): --- Professional --- 65257, Esophagogastroduodenoscopy, flexible, transoral; with ablation of tumor(s), polyp(s), or other lesion(s) (includes pre- and post-dilation and guide wire passage, when performed) 53136, Esophagogastroduodenoscopy, flexible, transoral; with removal of foreign body(s) CPT copyright 2021 [employer]. All rights reserved. The codes documented in this report are preliminary and upon lobster fisherman review may be revised to meet current compliance requirements. Greg Stallings DO 08/02/2024 12:02:12 PM This report has been signed electronically. Number of Addenda: 0 Note Initiated On: 08/02/2024 10:50 AM
--- NOTE | 2024-08-02 12:02 | OP.CCLET_ITS ---
08/02/2024 Nelda Martinez Md Re : Upper GI endoscopy procedure for Mine Perdomo Dear Michelle This procedure was performed on August. My impressions and recommendations are as follows: Impressions : - Normal esophagus. - Medium-sized hiatal hernia. - A medium amount of food (residue) in the stomach. Removal was successful. - Gastric stenosis was found in the prepyloric region of the stomach and at the pylorus. Dilated. Treated with argon plasma coagulation (APC). - Congested duodenal mucosa. Treated with argon plasma coagulation (APC). Clip was placed. Clip broadcast technician: CDNlion. - No gross lesions in the duodenal bulb. Recommendations : - Discharge patient to home. - Full liquid diet today. - Continue present medications. - No aspirin, ibuprofen, naproxen, or other non-steroidal anti-inflammatory drugs for 2 weeks. My findings are described in the full procedure note, which is enclosed. If I can be of further assistance, please feel free to contact me at . Sincerely, Greg Stallings, 08/02/2024 12:02:12 PM This report has been signed electronically.
--- NOTE | 2024-08-02 12:04 | PCM.POST.ANE ---
Anesthesia: Postop Eval I Current Vital Signs Temperature: 97.2 F Pulse Rate: 70 Blood Pressure: 84/57 Respiratory Rate: 16 Pulse Ox: 100 Oxygen Delivery Method: Room Air Assessment Airway patent: Yes Spontaneous unlabored respirations: Yes Mental status: Awake and Calm nausea: No Vomiting: No Anesthesia Complication: No Fluid Hydration Crystalloid volume administer (ml): 100 Total IV fluid infused: 100 Progress Note Anesthesia document: Postop Eval 1 completed: Yes
--- NOTE | 2024-08-02 13:42 | PCM.POSTANE2 ---
Anesthesia Postop Eval I Sum Postop Eval Completion status Anesthesia document: Postop Eval 1 completed: Yes Anesthesia Postop Eval I Summary Anesthesia Postop Eval I Summary: Anesthesia Postop Eval I: Assessment Summary Airway patent Yes 08/02/24 12:04 [email or web address] Spontaneous unlabored Yes 08/02/24 12:04 [email or web address] respirations Mental status Awake,Calm 08/02/24 12:04 [email or web address] nausea No 08/02/24 12:04 [email or web address] Vomiting No 08/02/24 12:04 [email or web address] Anesthesia Postop Eval I: Fluid Summary Crystalloid volume administer 100 08/02/24 12:04 [email or web address] (ml) Colloids volume administered ( ml) Blood Product volume administered (ml) Total IV fluid infused 100 08/02/24 12:04 [email or web address] Anesthesia Postop Eval I: Summary Notes Anesthesia Complication No 08/02/24 12:04 [email or web address] Anesthesia Complication Comment: Post-operative progress note Anesthesia: Postop Eval II Evaluation Mental status: Awake and Calm Pain Level: 0 nausea: No Vomiting: No Complications Anesthesia Complication: No
== END 2024-08-02 12:48 | disposition home or self-care (01) ==
LOC: EN 09:41 → AC 09:43
PROVIDERS: PCP Family Medicine; Referring Provider Family Medicine; Visit Provider Internal Medicine Gastroenterology
PROC: 0DJ08ZZ Inspection of Upper Intestinal Tract, Via Natural or Artificial Opening Endoscopic (ICD-10-PCS; CPT 43235; principal; 2024-08-02 10:40)
DX: K31.1 Adult hypertrophic pyloric stenosis (principal); K25.1 Acute gastric ulcer with perforation; K44.9 Diaphragmatic hernia without obstruction or gangrene; K31.89 Other diseases of stomach and duodenum; K21.00 Gastro-esophageal reflux disease with esophagitis, without bleeding; T18.2XXA Foreign body in stomach, initial encounter; W44.F3XA Food entering into or through a natural orifice, initial encounter; I10 Essential (primary) hypertension; J18.9 Pneumonia, unspecified organism; R09.02 Hypoxemia; I49.3 Ventricular premature depolarization; F41.9 Anxiety disorder, unspecified; E07.9 Disorder of thyroid, unspecified; E78.00 Pure hypercholesterolemia, unspecified; M19.90 Unspecified osteoarthritis, unspecified site; Z87.19 Personal history of other diseases of the digestive system; Z79.82 Long term (current) use of aspirin; Z79.890 Hormone replacement therapy; Z79.899 Other long term (current) drug therapy; Z96.643 Presence of artificial hip joint, bilateral; Z96.652 Presence of left artificial knee joint
CPT/HCPCS: 43245; 43247; 71046; 74018; 74177; 80053; 83605; 83690; 84484; 85025; 87040; 87631; 93005; 96361; 96365; 96366; 96367; 96375; 96376; 99285; Q9967; A4216; J2405

== ENCOUNTER 2024-08-02 18:11 | Emergency (ER) | payer MEDICARE, SELFPAY ==
[2024-08-02] VITALS (10 sets, daily range): BP systolic 107–141; BP diastolic 66–91; PULSE 99–112; RESP 14–19; TEMP 36.4–37.7; O2SAT 86–98; BMI 32.4
--- NOTE | 2024-08-02 18:38 | CT_ITS ---
We are attempting to reach an attending provider to discuss findings. An addendum with communication details will be sent when the communication is complete. STUDY: CT ABDOMEN AND PELVIS WITH CONTRAST REASON FOR EXAM: Female, 73 years old. upper abdominal pain RADIATION DOSAGE (If Supplied By Facility): CTDIvol = ( 19.83 ) mGy, DLP = ( 1581.41 ) mGycm TECHNIQUE: Transaxial images were obtained from the dome of the diaphragm to the symphysis pubis without oral contrast. IV 100mL Isovue-370 was administered. Sagittal and coronal images were reconstructed. Individualized dose optimization techniques were used for this CT. COMPARISON: None. FINDINGS: The visualized lung bases demonstrate basilar atelectasis. The visualized portions of the heart are within normal limits. Normal liver. Moderately distended gallbladder with cholelithiasis. No dilatation of the biliary system. Normal spleen. Normal pancreas. Normal bilateral adrenal glands. Bilateral renal cysts. Prominent air fluid level in the stomach. There are radiopaque linear metallic objects within the distal portion of the stomach and proximal duodenum possibly representing foreign bodies. An adjacent 4.5 x 2.6 cm gas-containing extraluminal collection and mesenteric stranding may be related perforation and abscess formation. Normal small intestine. Diverticulosis of the colon. The appendix is visualized and appears normal. Normal abdominal aorta. Normal inferior vena cava. Normal retroperitoneum. Normal urinary bladder. Calcified fibroid in the uterus. Small fatty umbilical hernia. Bilateral hip prosthesis. CT/Abdomen/Pelvis W IV Cont ONLY IMPRESSION: Prominent air fluid level in the stomach. There are radiopaque linear metallic objects within the distal portion of the stomach possibly representing foreign bodies. An adjacent 4.5 x 2.6 cm gas-containing extraluminal collection and mesenteric stranding may be related perforation and abscess formation. Small fatty umbilical hernia. Cholelithiasis. Bilateral renal cysts. Diverticulosis. Electronically Signed: Prabhjot Richmond DO at 20:33 EST Reading Location ID and State: [facility] / [place] Tel [phone], Service support ,
--- NOTE | 2024-08-02 18:38 | EKG12_ITS ---
Test Reason : DYSRHYTHMIA Blood Pressure : */* mmHG Vent. Rate : 114 BPM Atrial Rate : 114 BPM P-R Int : 154 ms QRS Dur : 74 ms QT Int : 322 ms P-R-T Axes : 45 9 67 degrees QTcB Int : 443 ms Sinus tachycardia with occasional Premature ventricular complexes Possible Left atrial enlargement Nonspecific ST and T wave abnormality Abnormal ECG Confirmed by GEOVANNY ARROYO, ILYA ([id number]), web content editor RUPA CLAYTON ([id number]) on 08/03/2024 8:24:25 AM Referred By: Lashae Land Confirmed By: ILYA SMALL MD
[2024-08-02] MEDS: 0.9% Normal Saline (1000mL) 1,000 ML 999 ML IV (18:53)
[2024-08-02] MEDS: Ondansetron 4 MG/2 ML Vial IV (18:54)
[2024-08-02] MEDS: Morphine 4 MG/ML Syringe IV ×2 (18:55→21:47)
[2024-08-02 19:12] LABS: Absolute Lymphocyte Count 0.91 X10^3/uL (0.83-4.51); Absolute Neutrophil Count 6.9 X10^3/uL (2.0-7.7); Basophil# 0.03 X10^3/uL; Basophil% 0.4 % (0-1); Eosinophil# 0.04 X10^3/uL; Eosinophils% 0.5 % (0-5); Hematocrit 40.3 % (37-47); Hemoglobin 13.1 g/dL (12.0-15.0); Lymphocyte # 0.91 X10^3/ul (0.83-4.51); Mean Corp Hgb Conc 32.5 g/dL (32-36); Mean Corpuscular Hgb 31.3 pg (27.0-32.0); Mean Corpuscular Volume 96.4 fL (81-99); Mean Platelet Vol. 9.4 fl (6.2-12.0); Monocyte% 4.8 % (0-10); NRBC Flagged by Analyzer 0 % (0-5); Neutrophil # 6.85 X10^3/uL (2.7-7.7); Neutrophil % 82.9 % (47-70); Platelet Count 270 K/mm3 (150-450); RBC Distribution Width CV 12.4 % (11.6-14.6); RBC Distribution Width SD 44.2 fl (35.1-43.9); Red Blood Count 4.18 M/mm3 (4.2-5.4); White Blood Count 8.3 K/mm3 (4.4-11.0)
--- NOTE | 2024-08-02 19:16 | CM.ED ---
Social Work Reason for visit: Verification of Advanced Directives Patient verified that she does have a HPOA and Living Will completed. Patient to bring in copy when able. No further needs identified. Rosibel Kaur, AUTOMOTIVE INSTRUCTOR, [employer]
--- NOTE | 2024-08-02 19:31 | EDS_ITS ---
HPI <ROCHELLE Motta - Last Filed: 08/02/24 22:06> HPI - GI History of Present Illness Chief Complaint: Abd Pain Narrative Narrative: Patient presenting today with upper abdominal pain that is worse on the right side that radiates to the right shoulder that started around 3 PM this afternoon. She reports that she had an EGD this morning performed by Dr. Stallings. She has a history of pyloric stenosis and PUD, she did have ulcers cauterized and also had clips placed. She reports that she felt well after the procedure until around 3 PM. She denies fevers, chills, nausea, vomiting, and diarrhea. She denies any history of previous abdominal surgery. FORMERLY [facility], [facility]–1983 <ROCHELLE Motta - Last Filed: 08/02/24 22:06> FORMERLY [facility], [facility] Medical History History of echocardiogram History of stress test Loss of hearing Post-menopausal Anxiety Thyroid disease Arthritis High cholesterol Easy bruising Back pain Dietary restriction Colitis Gastric reflux Non-smoker Palpitations Anemia Hemorrhoids Acid reflux Blood in stool Constipation Home Medications ?Medication ?Instructions ?Recorded ?Last Taken ?Type aspirin 81 mg tablet,delayed 81 mg PO QODAY 06/01/24 07/29/24 History release (Adult Aspirin Regimen) acetaminophen 650 mg 1,300 mg PO Q12H 06/27/24 Unknown History tablet,extended release calcium 600 mg (as 1 tab PO DAILY 06/27/24 Unknown History carbonate)-vitamin D3 5 mcg (200 unit) tablet atorvastatin 20 mg tablet 20 mg PO QODAY 07/30/24 Unknown History losartan 100 mg tablet 100 mg PO DAILY 07/30/24 08/02/24 07:00 History metoprolol succinate 100 mg 50 mg PO QHS 07/30/24 Unknown History tablet,extended release 24 hr niacin 500 mg tablet 500 mg PO QODAY 07/30/24 Unknown History omeprazole 40 mg capsule,delayed 40 mg PO QHS 07/30/24 Unknown History release sertraline 50 mg tablet 50 mg PO QHS 07/30/24 Unknown History levothyroxine 88 mcg tablet 88 mcg PO DAILY 08/02/24 Unknown History (Synthroid) sucralfate 1 gram tablet 1 g PO TID 08/02/24 Unknown History Allergy/AdvReac Type Severity Reaction Status Date / Time No Known Allergies Allergy Verified 07/30/24 11:08 Family History Father Arthritis Hypertension High cholesterol Mother Diabetes Hypertension Kidney disease Sister Thyroid disorder Surgical History History of esophagogastroduodenoscopy (EGD) Hx of colonoscopy History of left hip replacement History of right hip replacement History of lobectomy of thyroid Social History Smoking Status: Never smoker alcohol intake: never substance use type: does not use ROS <ROCHELLE Motta - Last Filed: 08/02/24 22:06> ROS ED Constitutional Constitutional ED: Denies chills or fever(s) Cardiovascular Cardiovascular: Denies chest pain Respiratory/Chest Respiratory/Chest: Denies dyspnea Gastrointestinal Gastrointestinal: Reports abdominal pain; Denies diarrhea, nausea or vomiting Genitourinary Genitourinary ED: Denies dysuria, hematuria or urinary frequency Musculoskeletal Musculoskeletal: Denies arthralgias or myalgias Integumentary Denies rash Neurologic Neurologic: Denies weakness EXAM <ROCHELLE Motta - Last Filed: 08/02/24 22:06> Physical Exam Const Vital Signs: 08/02/24 18:20 08/02/24 18:28 08/02/24 19:20 Temperature 97.8 F 97.8 F Temperature Source Oral Oral Pulse Rate 105 H 105 H 103 H Respiratory Rate 18 18 16 Blood Pressure 112/91 H 112/91 H 130/79 H Blood Pressure Mean 98 98 96 Pulse Ox 86 94 97 Oxygen Delivery Method Room Air Nasal Cannula Nasal Cannula Oxygen Flow Rate (L/min) 2 08/02/24 19:28 08/02/24 20:00 08/02/24 21:00 Temperature 97.8 F 98.7 F 97.5 F L Temperature Source Temporal Oral Oral Pulse Rate 105 H 99 104 H Respiratory Rate 14 14 19 H Blood Pressure 132/73 H 130/81 H 141/74 H Blood Pressure Mean 92 97 96 Pulse Ox 97 98 96 Oxygen Delivery Method Nasal Cannula Nasal Cannula Room Air Oxygen Flow Rate (L/min) 2 08/02/24 22:00 08/02/24 23:00 Temperature 99.1 F 100 F H Temperature Source Oral Oral Pulse Rate 112 H 112 H Respiratory Rate 15 19 H Blood Pressure 121/73 H 107/66 Blood Pressure Mean 89 79 Pulse Ox 96 92 Oxygen Delivery Method Nasal Cannula Nasal Cannula Oxygen Flow Rate (L/min) 2 2 Positive well nourished, well developed and no apparent distress General Appearance ED: well developed HEENT Reports normocephalic and head/scalp atraumatic Mouth ED: Yes moist mucous membranes normal Eyes PERRL and EOMs intact bilaterally Neck full ROM and supple Chest Wall inspection of chest normal Resp normal respiratory effort and clear to auscultation bilaterally Cardio regular rate and regular rhythm GI soft to palpation, non-distended and no masses GI Narrative: Epigastric and right upper quadrant tenderness to palpation, no rigidity or guarding. Back/Spine normal ROM and normal to inspection Extremity normal to inspection and full ROM Neuro oriented x3, CN's II-XII intact bilaterally, moves all extremities, no focal motor deficits and no sensory deficits noted Sensorium / Orientation: awake and alert Psych mental status grossly normal and thought process normal Skin no rashes or lesions noted and no wounds <Dr. Lashae Land, DO - Last Filed: 08/03/24 00:00> Physical Exam Const Vital Signs: 08/02/24 18:20 08/02/24 18:28 08/02/24 19:20 Temperature 97.8 F 97.8 F Temperature Source Oral Oral Pulse Rate 105 H 105 H 103 H Respiratory Rate 18 18 16 Blood Pressure 112/91 H 112/91 H 130/79 H Blood Pressure Mean 98 98 96 Pulse Ox 86 94 97 Oxygen Delivery Method Room Air Nasal Cannula Nasal Cannula Oxygen Flow Rate (L/min) 2 08/02/24 19:28 08/02/24 20:00 08/02/24 21:00 Temperature 97.8 F 98.7 F 97.5 F L Temperature Source Temporal Oral Oral Pulse Rate 105 H 99 104 H Respiratory Rate 14 14 19 H Blood Pressure 132/73 H 130/81 H 141/74 H Blood Pressure Mean 92 97 96 Pulse Ox 97 98 96 Oxygen Delivery Method Nasal Cannula Nasal Cannula Room Air Oxygen Flow Rate (L/min) 2 08/02/24 22:00 08/02/24 23:00 Temperature 99.1 F 100 F H Temperature Source Oral Oral Pulse Rate 112 H 112 H Respiratory Rate 15 19 H Blood Pressure 121/73 H 107/66 Blood Pressure Mean 89 79 Pulse Ox 96 92 Oxygen Delivery Method Nasal Cannula Nasal Cannula Oxygen Flow Rate (L/min) 2 2 [facility] <ROCHELLE Motta - Last Filed: 08/02/24 22:06> [facility] Narrative Medical decision making narrative: Patient presenting today with upper abdominal pain that is worse in the right upper quadrant that radiates to her right shoulder that started around 3 PM. She did have an EGD performed this morning by Dr. Stallings, she had a stricture dilated at the pylorus, clips placed at the duodenal mucosa, and argon plasma coagulation in the duodenum for ulcers that were bleeding. Labs obtained, her CBC is unremarkable, creatinine 1.21, total bilirubin is 1.2 which is downtrending from previous labs. Lipase is WNL she was given IV fluids, Zofran, and morphine for pain. CT scan of the abdomen and pelvis obtained to assess for perforation, cholecystitis, bowel obstruction, and other etiology. CT scan shows extraluminal collection and mesenteric stranding adjacent to the duodenum concerning for perforation and possibly abscess formation. I did speak with Dr. Stallings, he recommends giving her vancomycin, Zosyn, and admitting her to the hospital. After speaking with the hospitalist, she recommended speaking with Dr. Davis who recommends NG tube placement and transfer given patient has a high likelihood of needing surgery. Patient given additional analgesia and we will attempt transfer. Lab Data Attestation: I reviewed the patient's lab results. Labs: Laboratory Results - last 24 hr 08/02/24 08/02/24 19:04 19:43 WBC 8.3 RBC 4.18 L Hgb 13.1 Hct 40.3 MCV 96.4 MCH 31.3 MCHC 32.5 RDW Std Deviation 44.2 H RDW Coeff of Jesus 12.4 Plt Count 270 MPV 9.4 Immature Gran % (Auto) 0.400 Neut % (Auto) 82.9 H Lymph % (Auto) 11.0 L Holmes % (Auto) 4.8 Eos % (Auto) 0.5 Baso % (Auto) 0.4 Absolute Neuts (auto) 6.9 Absolute Lymphs (auto) 0.91 Nucleated RBC % 0 Sodium 137 Potassium 3.6 Chloride 103 Carbon Dioxide 24.0 Anion Gap 10 BUN 16 Creatinine 1.21 H Estim Creat Clear Calc 44.81 Est GFR (MDRD) Af Amer 56 L Est GFR (MDRD) Non-Af 46 L BUN/Creatinine Ratio 13.2 Glucose 123 H Lactic Acid 1.8 Calcium 8.6 Total Bilirubin 1.20 H AST 18 ALT 27 Alkaline Phosphatase 69 Troponin I High Sens 8 Total Protein 6.6 Albumin 3.1 L Globulin 3.5 Albumin/Globulin Ratio 0.9 Lipase 25 Radiography Diagnostic Testing: Clinical Impression(s) from Imaging Studies Abdomen/Pelvis CT 08/02/24 18:38 IMPRESSION: Prominent air fluid level in the stomach. There are radiopaque linear metallic objects within the distal portion of the stomach possibly representing foreign bodies. An adjacent 4.5 x 2.6 cm gas-containing extraluminal collection and mesenteric stranding may be related perforation and abscess formation. Small fatty umbilical hernia. Cholelithiasis. Bilateral renal cysts. Diverticulosis. Electronically Signed: Prabhjot Richmond DO at 20:33 EST , ADDENDUM: 08/02/242044 IMPRESSION: Prominent air fluid level in the stomach. There are radiopaque linear metallic objects within the distal portion of the stomach possibly representing foreign bodies. An adjacent 4.5 x 2.6 cm gas-containing extraluminal collection and mesenteric stranding may be related perforation and abscess formation. Small fatty umbilical hernia. Cholelithiasis. Bilateral renal cysts. Diverticulosis. N.B. : The above Results were Read Back by Prabhjot Richmond DO to [place] Motta, and understanding confirmed on 08/02/2024 20:38:59 (ET). Electronically Signed: Prabhjot Richmond DO at 20:33 EST , ADDENDUM: 08/02/242045 IMPRESSION: undefined Chest X-Ray 08/02/24 20:00 IMPRESSION: Left basilar infiltrate/atelectasis. Electronically Signed: Prabhjot Richmond DO at 21:28 EST , KUB X-Ray 08/02/24 22:31 IMPRESSION: Bilateral basilar infiltrates. Nasogastric tube in the stomach. Electronically Signed: Prabhjot Richmond DO at 23:02 EST Reading Location ID and State: [facility] / [place] Tel [phone], Service support , EKG Initial EKG: Comments: 114 bpm, sinus tachycardia with occasional PVCs, no ST elevation, interpreted by attending ED physician <Dr. Lashae Land, - Last Filed: 08/03/24 00:00> [facility] MDM Narrative Medical decision making narrative: Patient presenting today with upper abdominal pain that is worse in the right upper quadrant that radiates to her right shoulder that started around 3 PM. She did have an EGD performed this morning by Dr. Stallings, she had a stricture dilated at the pylorus, clips placed at the duodenal mucosa, and argon plasma coagulation in the duodenum for ulcers that were bleeding. Labs obtained, her CBC is unremarkable, creatinine 1.21, total bilirubin is 1.2 which is downtrending from previous labs. Lipase is WNL she was given IV fluids, Zofran, and morphine for pain. CT scan of the abdomen and pelvis obtained to assess for perforation, cholecystitis, bowel obstruction, and other etiology. CT scan show s extraluminal collection and mesenteric stranding adjacent to the duodenum concerning for perforation and possibly abscess formation. I did speak with Dr. Stallings, he recommends giving her vancomycin, Zosyn, and admitting her to the hospital. After speaking with the hospitalist, she recommended speaking with Dr. Davis who recommends NG tube placement and transfer given patient has a high likelihood of needing surgery. Patient given additional analgesia and we will attempt transfer. I have personally performed a face to face assessment of the patient and have reviewed the BHAVANI Note. I performed a substantive portion of the visit including all aspects of the following. My lambert findings include: History is Patient is 73-year-old female with history of pyloric stenosis who underwent EGD today for dilation with Dr. Stallings. She will call after the procedure but after going home she developed worsening abdominal pain. On arrival to the ER patient was in mild distress secondary to pain. She is tachycardic. She was hypoxic (86% on room air) and placed on 2 L nasal cannula. She denies any respiratory symptoms over the past few days or URI symptoms. Concern for complication associated with her procedure is high on the differential. Lab work largely normal and lactate added on as well. This is all normal. X-ray of the chest shows a left basilar infiltrate. CT of the abdomen pelvis shows findings concerning for perforation with air- fluid level collection of mesenteric stranding next to surgical site/surgical clip. Case initially discussed with GI, Dr. Stallings who recommended broad- spectrum antibiotic (vancomycin and Rocephin) and monitoring with IV fluids. Case discussed with hospitalist and general surgery who expressed concern that this might be more complicated if this does require surgical repair and patient be better suited at a facility with higher foregut capabilities. Case initially discussed with [facility] who felt he did not have any higher capabilities. Then discussed with [facility] Transfer line who has extended wait. Patient's case discussed with Dr. Ryan at [place] who ultimately excepted the patient. Patient had NG tube placed in the emergency room with improvement of her symptoms. Concern of perforation versus recurrent pyloric stenosis causing gastric outlet obstruction. Other additions or changes: [None] Lab Data Labs: Laboratory Results - last 24 hr 08/02/24 08/02/24 19:04 19:43 WBC 8.3 RBC 4.18 L Hgb 13.1 Hct 40.3 MCV 96.4 MCH 31.3 MCHC 32.5 RDW Std Deviation 44.2 H RDW Coeff of Jesus 12.4 Plt Count 270 MPV 9.4 Immature Gran % (Auto) 0.400 Neut % (Auto) 82.9 H Lymph % (Auto) 11.0 L Holmes % (Auto) 4.8 Eos % (Auto) 0.5 Baso % (Auto) 0.4 Absolute Neuts (auto) 6.9 Absolute Lymphs (auto) 0.91 Nucleated RBC % 0 Sodium 137 Potassium 3.6 Chloride 103 Carbon Dioxide 24.0 Anion Gap 10 BUN 16 Creatinine 1.21 H Estim Creat Clear Calc 44.81 Est GFR (MDRD) Af Amer 56 L Est GFR (MDRD) Non-Af 46 L BUN/Creatinine Ratio 13.2 Glucose 123 H Lactic Acid 1.8 Calcium 8.6 Total Bilirubin 1.20 H AST 18 ALT 27 Alkaline Phosphatase 69 Troponin I High Sens 8 Total Protein 6.6 Albumin 3.1 L Globulin 3.5 Albumin/Globulin Ratio 0.9 Lipase 25 Radiography Diagnostic Testing: Clinical Impression(s) from Imaging Studies Abdomen/Pelvis CT 08/02/24 18:38 IMPRESSION: Prominent air fluid level in the stomach. There are radiopaque linear metallic objects within the distal portion of the stomach possibly representing foreign bodies. An adjacent 4.5 x 2.6 cm gas-containing extraluminal collection and mesenteric stranding may be related perforation and abscess formation. Small fatty umbilical hernia. Cholelithiasis. Bilateral renal cysts. Diverticulosis. Electronically Signed: Prabhjot Richmond DO at 20:33 EST Reading Location ID and State: [id number] / [place] Tel [phone], Service support , ADDENDUM: 08/02/242044 IMPRESSION: Prominent air fluid level in the stomach. There are radiopaque linear metallic objects within the distal portion of the stomach possibly representing foreign bodies. An adjacent 4.5 x 2.6 cm gas-containing extraluminal collection and mesenteric stranding may be related perforation and abscess formation. Small fatty umbilical hernia. Cholelithiasis. Bilateral renal cysts. Diverticulosis. N.B. : The above Results were Read Back by Prabhjot Richmond DO to ROCHELLE Motta, and understanding confirmed on 08/02/2024 20:38:59 (ET). Electronically Signed: Prabhjot Richmond DO at 20:33 EST Reading Location ID and State: [id number] / [place] Tel [phone], Service support , ADDENDUM: 08/02/242045 IMPRESSION: undefined Chest X-Ray 08/02/24 20:00 IMPRESSION: Left basilar infiltrate/atelectasis. Electronically Signed: Prabhjot Richmond DO at 21:28 EST Reading Location ID and State: [id number] / [place] Tel [phone], Service support , KUB X-Ray 08/02/24 22:31 IMPRESSION: Bilateral basilar infiltrates. Nasogastric tube in the stomach. Electronically Signed: Prabhjot Richmond DO at 23:02 EST , Management Discussion w/another healthcare provider: Md Pediatric Allergist Discharge Plan Triage Chief Complaint: Abd Pain ED Midlevel Provider: Marlen Scott ED Provider: Lashae Land Dx/Rx/DC Orders Clinical Impression: Perforated stomach, Adult pyloric stenosis, Pneumonia, Hypoxia Prescriptions: No Action aspirin [Adult Aspirin Regimen] 81 mg tablet,delayed release (DR/EC) 81 mg PO QODAY levothyroxine [Synthroid] 88 mcg tablet 88 mcg PO DAILY sucralfate 1 gram tablet 1 g PO TID Rx Instructions: Take 1 hour before meals (lunch and dinner) and at bedtime; skipping breakfast due to levothyroxine calcium carbonate-vitamin D3 600 mg-5 mcg (200 unit) tablet 1 tab PO DAILY acetaminophen 650 mg tablet extended release 1,300 mg PO Q12H atorvastatin 20 mg tablet 20 mg PO QODAY losartan 100 mg tablet 100 mg PO DAILY metoprolol succinate 100 mg tablet extended release 24 hr 50 mg PO QHS sertraline 50 mg tablet 50 mg PO QHS niacin 500 mg tablet 500 mg PO QODAY omeprazole 40 mg capsule,delayed release(DR/EC) 40 mg PO QHS Rx Instructions: Taking p.m. due to levothyroxine in the a.m. Primary Care Provider: Nelda Martinez Referrals: Nelda Martinez MD [Primary Care Provider] - Print Language: Nauruan Disposition Disposition: Acute Care Hospital Discharge Location: [facility]
[2024-08-02 19:34] LABS: ALB/GLOB Ratio 0.9 RATIO (0.9-2.4); AST(SGOT) 18 U/L (15-37); Alanine Aminotransfer ALT/SGPT 27 U/L (13-56); Albumin, Serum 3.1 g/dL (3.2-5.0); Alkaline Phosphatase 69 U/L (45-117); Anion Gap 10 (5-15); BUN 16 mg/dL (7-18); BUN/Creat Ratio 13.2 RATIO (10-20); Calcium,Total 8.6 mg/dL (8.5-10.1); Chloride 103 mmol/L (98-107); Creatinine, Serum 1.21 mg/dL (0.55-1.02); EST Glomerular Filtration Rate 46 mL/min (>60); Est Glom Filt Rate - Afr Amer 56 mL/min (>60); Estimated Creatinine Clearance 44.81 ml/min; Globulin 3.5 g/dL (2.2-4.2); Glucose 123 mg/dL (74-106); Lipase 25 U/L (13-75); Potassium 3.6 mmol/L (3.5-5.1); Protein, Total 6.6 g/dL (6.4-8.2); Sodium Level 137 mmol/L (136-145); Troponin-I HS 8 pg/mL (3.0-54.0)
[2024-08-02] MEDS: Simethicone 40MG/0.6ML Bottle 80 MG PO (19:40)
--- NOTE | 2024-08-02 20:00 | RAD_ITS ---
INDICATION: hypoxia EXAMINATION/TECHNIQUE: X-RAY - XR Chest 2 Views COMPARISON: FINDINGS: LINES/DEVICES: None. LUNGS: Left basilar infiltrate/atelectasis. No pneumothorax. MEDIASTINUM AND CARDIOVASCULAR STRUCTURES: Cardiac silhouette not enlarged. Central airways and mediastinal contour are unremarkable. BONES AND SOFT TISSUES: Unremarkable. RAD/Chest PA and Lateral IMPRESSION: Left basilar infiltrate/atelectasis. Electronically Signed: Prabhjot Richmond DO at 21:28 EST Reading Location ID and State: [facility] / [place] Tel [phone], Service support ,
[2024-08-02 20:18] LABS: Lactic Acid 1.8 mmol/L (0.4-1.9)
[2024-08-02] MEDS: Piperacil/Tazobactam 3.375 GM in 0.9% Normal Saline (50mL MB+) 50 ML IV (20:58)
[2024-08-02] MEDS: Vancomycin IV 1,000 MG/200 ML BAG 200 MG IV (21:41)
--- NOTE | 2024-08-02 21:44 | ED.RN ---
CALLED [facility] FOR POSSIBLE TRANSFER, TRANSFER LINE SAID THEY WERE AT CRISICAL CAPACITY ONLY TAKING STEMI STROKE TRAUMA. CALLED [facility] AND THEY TOOK PT INFO, WAS REACHING OUT TO SURGERY AND I FAXED FACE SHEET AND SENT IMAGES PER REQUEST.
--- NOTE | 2024-08-02 22:04 | ED.RN ---
[facility] CALLED BACK, SURGICAL/[facility] BED[facility] AT [facility]. CALLED DA, WAITING CALL BACK.
--- NOTE | 2024-08-02 22:31 | RAD_ITS ---
STUDY: X-RAY - ABDOMEN/PELVIS REASON FOR EXAM: Female, 73 years old. NG Insertion TECHNIQUE: Frontal view COMPARISON: None. FINDINGS: Infiltrates in the visualized lung bases. There is an unremarkable bowel gas pattern. There is no demonstrated free abdominal air. Nasogastric tube in the stomach. Surgical clips in the right upper quadrant. Normal soft tissue structures. Degenerative vertebral changes. RAD/Abdomen Single View (Portable) IMPRESSION: Bilateral basilar infiltrates. Nasogastric tube in the stomach. Electronically Signed: Prabhjot Richmond DO at 23:02 EST ,
[2024-08-02] MEDS: 0.9% Normal Saline (1000mL) 1,000 ML 125 ML IV (23:20)
[2024-08-02] MEDS: Ketorolac 15 MG/ML Vial IV (23:20)
[2024-08-03] VITALS (36 sets, daily range): BP systolic 84–119; BP diastolic 51–78; PULSE 95–124; RESP 10–24; TEMP 36.3–37.7; O2SAT 88–98
[2024-08-03] MEDS: Ondansetron 4 MG/2 ML Vial IV ×2 (03:38→16:03)
[2024-08-03] MEDS: Morphine 4 MG/ML Syringe IV ×2 (03:38→16:03)
--- NOTE | 2024-08-03 05:39 | ED.RN ---
[facility], SAID NO BEDS OF YET. D/C IN AM, AND BED WILL BE AVAILABLE.
[2024-08-03] MEDS: Piperacil/Tazobactam 3.375 GM in 0.9% Normal Saline (50mL MB+) 50 ML IV (09:02)
--- NOTE | 2024-08-03 10:22 | CM.ED ---
Social work Reason for referral: support due to transfer Referral source: case find This SW identified patient being transferred and being present in the [facility] ED for a long period of time, so this SW identified patient probable need for support. This SW entered patient's room, introducing self and role at [facility]. Patient was lying in bed and patient's , Fly, and patient's brother were bedside. Patient gave permission to speak in front of patient's guests and patient introduced patient's brother as a retired doctor. Patient discussed the last 2 days and the struggles patient has endured; much active listening provided. Patient's brother asked why patient was waiting in an ED so long; this SW expressed understanding that patient was waiting on bed availability at another hospital. Patient's brother stated wanting to directly call a surgeon that patient's brother is aware of and patient told patient's brother that the surgeon was unavailable as [facility] ED staff had already checked on that specific surgeon. Patient's brother stated feeling better about patient staying so long in the ED due simply to bed availability at other hospitals. Patient's brother and patient's left the room; patient spoke with this SW longer. Patient stated hoping patient does not require surgery, stating patient was remaining positive. Active listening and supportive presence provided. Patient stated being thirsty, but understanding patient could not receive water at this time. Patient stated using the sponges to help keep patient's lips wet. Patient denied further needs at this time. SW to follow as needed. Marry Shelton, MANAGEMENT TECH, [employer] CORK INSULATOR
--- NOTE | 2024-08-03 11:55 | CM.ED ---
Social work Per Rosibel LOZADA yesterday, 08/02/24, patient has advance directives complete and will bring in when able. Marry Shelton, SENIOR SPEECH PATHOLOGIST, RN DOCUMENT IMPROVEMENT
--- NOTE | 2024-08-03 12:06 | ED.RN ---
CALLED [facility]SF[facility]. STILL WAITING ON A BED. MIGHT HAVE ONE LATER? DISCHARGE DEPENDED.
--- NOTE | 2024-08-03 15:38 | ED.RN ---
CALLED BACK [facility] @[id number] MOST LIKELY WILL NOT BE TONIGHT. 22 PATIENTS WAITING ON A BED @ [facility]
[2024-08-03] MEDS: Tetracaine/Benzocaine/Butamben 1 APPLIC TOPICAL (15:46)
[2024-08-03] MEDS: Pantoprazole Sodium 40 MG in 0.9% Normal Saline (100mL MB+) 100 ML 330 MG IV (17:39)
== END 2024-08-03 18:59 | disposition short-term general hospital (02) ==
PROVIDERS: Physician Assistant; Emergency Provider Emergency Medicine; PCP Family Medicine; Referring Provider Emergency Medicine; Visit Provider Emergency Medicine
DX: K25.1 Acute gastric ulcer with perforation (principal); K31.1 Adult hypertrophic pyloric stenosis; J18.9 Pneumonia, unspecified organism; R09.02 Hypoxemia; I49.3 Ventricular premature depolarization; F41.9 Anxiety disorder, unspecified; K21.9 Gastro-esophageal reflux disease without esophagitis; E07.9 Disorder of thyroid, unspecified; E78.00 Pure hypercholesterolemia, unspecified; M19.90 Unspecified osteoarthritis, unspecified site; Z79.82 Long term (current) use of aspirin; Z79.899 Other long term (current) drug therapy; Z96.652 Presence of left artificial knee joint; Z96.641 Presence of right artificial hip joint; Z79.890 Hormone replacement therapy
CPT/HCPCS: 71046; 74018; 74177; 80053; 83605; 83690; 84484; 85025; 87040; 87631; 93005; Q9967; J2405

== ENCOUNTER → 2025-05-15 | Outpatient (CLI) | payer MEDICARE, SELFPAY | END | disposition home or self-care (01) | LOC: MFPLAB 08:43 | PROVIDERS: PCP Family Medicine; Visit Provider Family Medicine | DX: E04.1 Nontoxic single thyroid nodule (principal); Z13.1 Encounter for screening for diabetes mellitus | CPT/HCPCS: 36415; 83036; 84443 ==

== ENCOUNTER → 2025-06-05 | Outpatient (CLI) | payer MEDICARE, SELFPAY | END | disposition home or self-care (01) | LOC: LABSPEC 17:02 | PROVIDERS: PCP Family Medicine | DX: N39.0 Urinary tract infection, site not specified (principal) | CPT/HCPCS: 87086; 87088; 87186 ==

== ENCOUNTER → 2025-06-12 | Outpatient (CLI) | payer MEDICARE, SELFPAY ==
--- NOTE | 2025-06-12 14:10 | US_ITS ---
PROCEDURE: THYROID 06/12/2025 REASON FOR EXAM: NODULE TECHNIQUE: Procedure Code: USTHY Modality: US Procedure: THYROID COMPARISON: Thyroid ultrasound dated 04/20/2024 FINDINGS: Right thyroid lobe size: 3.8 x 1.7 x 1.4 cm cm Left thyroid lobe size: The left thyroid lobe has been surgically removed. No residual left-sided thyroid tissue is evident. Isthmus: 0.2 cm Background parenchymal echotexture is homogeneous. Nodules: There are 4 nodules seen. 3 of the nodules are similar when compared to the prior thyroid ultrasound exam. 1 of them is slightly larger when compared to the prior exam. This nodule now measures 13 x 11 x 11 mm. This nodule previously measured 9 x 8 x 6 mm. 1. Lobe: Right, Location: Mid, Size: 7 x 6 x 5 mm, Stability: Stable Composition: Mixed cystic and solid (+1) Echogenicity: Hypoechoic (+2) Margin: Smooth (+0) Shape: Wider than tall (+0) Echogenic Foci: None (+0) TI-RADS: TR 3 2. Lobe: Right, Location: Inferior, Size: 1.3 x 1.1 x 1.1 cm, Stability: Larger Composition: Solid or almost completely solid (+2) Echogenicity: Hyper to Isoechoic (+1) Margin: Smooth (+0) Shape: Wider than tall (+0) Echogenic Foci: None (+0) TI-RADS: 3 US/Thyroid IMPRESSION: Evidence of previous left thyroidectomy. Findings compatible with multinodular goiter. The right thyroid lobe located i nferiorly has slightly increased in size when compared to the prior thyroid ultrasound. RECOMMENDATION: Based on most suspicious nodule. Nodule size = largest diameter Only evaluate nodule if =>5 mm. Growth > 20% in 2 dimensions = worsening. Follow up to 4 nodules. Recommend biopsy for no more than 2 nodules. Reading Location: [id number]
== END | disposition home or self-care (01) ==
LOC: US 14:09
PROVIDERS: PCP Family Medicine; Referring Provider Family Medicine; Visit Provider Family Medicine
DX: E04.1 Nontoxic single thyroid nodule (principal)
CPT/HCPCS: 76536